=== PATIENT | male | born 1950 | race Caucasian/White ===

== ENCOUNTER 2019-05-18 17:05 | Observation (INO) | payer MEDICARE, OTHER, SELFPAY ==
[2019-05-18] VITALS (8 sets, daily range): BP systolic 129–167; BP diastolic 82–110; PULSE 62–83; RESP 15–18; TEMP 36.6–36.7; O2SAT 96–100; BMI 24.9
--- NOTE | 2019-05-18 17:09 | EKG12_ITS ---
Test Reason : CP Blood Pressure : / mmHG Vent. Rate : 085 BPM Atrial Rate : 085 BPM P-R Int : 156 ms QRS Dur : 086 ms QT Int : 368 ms P-R-T Axes : 063 080 069 degrees QTc Int : 437 ms Sinus rhythm with occasional Premature ventricular complexes Possible Left atrial enlargement Borderline ECG No previous ECGs available Confirmed by BASSEM MESSINA, REYNA ([id number]), commercial production editor RAJIV POWER ([id number]) on 05/23/2019 11:36:55 AM Referred By: Mian Zaragoza Confirmed By:REYNA LUEVANO MD
--- NOTE | 2019-05-18 17:10 | ED.DCSUM_ITS ---
History of Present Illness Chief Complaint: Chest Pain Detail of Chief Complaint: That has been intermittent x1 month Informant: Patient, Significant Other Onset: Weeks Context: Onset with activity, Sudden Onset Timing: Intermittent Quality: Pain Location: From right nipple to left subclavian region Current Severity: Presently patient has no pain Maximum Severity: Moderate Worsened by: Majority of the time exertion Relieved by: Nothing specific Associated Symptoms: None Narrative: Patient is a 68-year-old male history of hypertension, hypercholesterolemia status post three-vessel bypass surgery 3 years ago. He states he is never had a heart attack. His bypass surgery was done at the [facility]. Over the past month he has had chest discomfort described this pain that is precipitated mainly by exertion. There have been episodes where it occurs at rest. Today he felt flushed and reason he presents. There is no radiation or associated symptoms. He does have history of GERD. Denies black or maroon stool. There is no history of PE or DVT. He has no other complaints. Prior similar symptoms: No Recent Illness/Hospitalization: No - Past Medical History (1) History of hypertension Status: Acute (2) History of hypercholesterolemia Status: Acute (3) History of coronary artery disease Status: Acute Past Medical History - Allergies and Home Meds Allergies/Adverse Reactions: Allergies No Known Allergies Allergy (Verified 05/18/19 17:05) Prior records reviewed: No Surgical History: coronary bypass surgery Lives: Spouse/ Significant Other Alcohol: None Drugs: None Review of Systems General: Denies: Chills, Fever, Sweats Eyes: Denies: Visual changes - bilaterally, Diplopia ENT: Denies: Rhinorrhea, Sore throat Cardiovascular: Reports: Chest pain. Denies: Palpitations, Heart racing Respiratory: Denies: Dyspnea, Cough, Dyspnea on exertion, Orthopnea, Paroxysmal nocturnal dyspnea Gastrointestinal: Denies: Abdominal pain, Nausea, Vomiting, Diarrhea, Melena, Hematochezia Genitourinary: Denies: Dysuria, Hematuria, Frequency Musculoskeletal: Denies: Myalgias, Arthralgias, Neck pain, Back pain, Swelling, Extremity Pain, -, - Skin: Denies: Rash, Wounds Neurological: Denies: Headache, Weakness, Numbness Physical Exam Vital Signs/Narrative: Vital Signs Temp Pulse Resp BP Pulse Ox 05/18/19 17:08 98 F 83 15 167/110 H 98 Inital Vital Signs reviewed: Yes General: Well nourished, Well developed, No Acute Distress Head: Normocephalic, Atraumatic Eyes: Perrl, EOMI ENT: Moist mucous membranes, No rhinorrhea Neck: Supple, Nontender Cardiovascular: Regular rate, Regular rhythm, No murmurs, Normal S1, Normal S2 Respiratory: No distress, CTA bilaterally, Chest nontender Abdomen: Soft, Nontender, Nondistended, Normal bowel sounds Back: Nontender, Normal Inspection Extremities: Nontender, No edema Skin: Normal color, No rash Neurological: Alert, Oriented x3, Cranial nerves II-XII grossly intact, Normal Strength, Normal Sensation Psychological: Normal affect, Normal Mood Diagnostic/Tx/Re-eval Impressions Chest X-Ray 05/18/19 17:16 IMPRESSION: Nonacute portable x-ray examination of the chest. Electronically Signed: Boris Alonzo MD (Brooks) at 17:32 EST , Service support , 05/18/19 17:16 Chest 1 View (Portable) [RAD] Stat Laboratory Results 05/18/19 05/18/19 17:25 17:25 WBC 6.8 RBC 4.52 L Hgb 14.3 Hct 40.4 MCV 89.4 MCH 31.6 MCHC 35.4 RDW Std Deviation 38.9 RDW Coeff of Rufina 12.0 Plt Count 121 L MPV 8.0 Immature Gran % (Auto) 0.300 Neut % (Auto) 63.6 Lymph % (Auto) 24.0 [place] % (Auto) 9.6 Eos % (Auto) 2.2 Baso % (Auto) 0.3 Absolute Neuts (auto) 4.3 Absolute Lymphs (auto) 1.62 Nucleated RBC % 0 Sodium 138 Potassium 3.7 Chloride 105 Carbon Dioxide 27.0 Anion Gap 6 BUN 26 H Creatinine 1.35 H Estim Creat Clear Calc 43.85 Est GFR (MDRD) Af Amer 68 Est GFR (MDRD) Non-Af 56 L BUN/Creatinine Ratio 19.3 Glucose 85 Calcium 9.4 Troponin I < 0.015 Troponin is normal. Creatinine is elevated 1.35 with a GFR 56. CBC and H&H are normal. - Medical Decision Making Patient with 3 risk factors for coronary disease. He states prior to his three- vessel bypass surgery he had chest pain that came on predominantly with exertion. Cardiac work-up was initiated. Differential diagnosis is cardiac exertional angina versus GERD versus other cause. he has a heart score of 4. Likelihood of significant event in the next 3 days is 20.3%. Patient was made aware of this. Patient is willing to stay for further testing. He was informed of his troponin stay normal he in all likelihood to have a stress test if positive the hospitalist and math interventionist will speak with him. ED Disposition - Plan for ED Patient: Disposition: Acute Care Hospital [facility] Diagnosis: Chest pain on exertion, History of coronary artery disease, History of hypercholesterolemia, History of hypertension
--- NOTE | 2019-05-18 17:16 | RAD_ITS ---
STUDY: X-RAY CHEST REASON FOR EXAM: Male, 68 years old. Intermittent chest pain for one month TECHNIQUE: Single AP portable view of the chest. COMPARISON: None. FINDINGS: The lungs are clear and expanded. There is no demonstrated pleural abnormality. Normal size heart. Sternal wires and mediastinal surgical clips compatible with prior CABG. Normal visualized pulmonary arteries. There is atherosclerotic tortuosity of the aortic arch and descending thoracic aorta. No acute bony process. There is no demonstrated abnormality of the visualized soft tissue structures of the upper abdomen. RAD/Chest 1 View (Portable) IMPRESSION: Nonacute portable x-ray examination of the chest. Electronically Signed: Boris Alonzo MD (Brooks) at 17:32 EST , Service support ,
[2019-05-18 17:38] LABS: Absolute Lymphocyte Count 1.62 X10^3/uL (0.83-4.51); Absolute Neutrophil Count 4.3 X10^3/uL (2.0-7.7); Basophil# 0.02 X10^3/uL; Basophil% 0.3 % (0-1); Eosinophil# 0.15 X10^3/uL; Eosinophils% 2.2 % (0-5); Hematocrit 40.4 % (40-54); Hemoglobin 14.3 g/dL (13.0-16.5); Lymphocyte # 1.62 X10^3/ul (4.0); Mean Corp Hgb Conc 35.4 g/dL (32-36); Mean Corpuscular Hgb 31.6 pg (27.0-32.0); Mean Corpuscular Volume 89.4 fL (80-94); Monocyte# 0.65 X10^3/uL; Monocyte% 9.6 % (0-10); NRBC Flagged by Analyzer 0 % (0-5); Neutrophil % 63.6 % (47-70); Platelet Count 121 K/mm3 (150-450); RBC Distribution Width SD 38.9 fl (35.1-43.9); Red Blood Count 4.52 M/mm3 (4.6-6.2); White Blood Count 6.8 K/mm3 (4.4-11.0)
[2019-05-18 17:59] LABS: Anion Gap 6 (5-15); BUN 26 mg/dL (7-18); BUN/Creat Ratio 19.3 RATIO (10-20); Calcium,Total 9.4 mg/dL (8.5-10.1); Chloride 105 mmol/L (98-107); Creatinine, Serum 1.35 mg/dL (0.70-1.30); EST Glomerular Filtration Rate 56 mL/min (>60); Est Glom Filt Rate - Afr Amer 68 mL/min (>60); Estimated Creatinine Clearance 43.85 ml/min; Glucose 85 mg/dL (74-106); Potassium 3.7 mmol/L (3.5-5.1); Sodium Level 138 mmol/L (136-145)
--- NOTE | 2019-05-18 21:08 | EKG12_ITS ---
Test Reason : REPEAT ST ELEV Blood Pressure : / mmHG Vent. Rate : 065 BPM Atrial Rate : 065 BPM P-R Int : 148 ms QRS Dur : 082 ms QT Int : 404 ms P-R-T Axes : 060 076 086 degrees QTc Int : 420 ms Normal sinus rhythm Confirmed by BASSEM MESSINA, REYNA ([id number]), material expeditor RAJIV POWER ([id number]) on 05/23/2019 11:37:19 AM Referred By: Mian Zaragoza Confirmed By:REYNA LUEVANO MD
--- NOTE | 2019-05-18 21:58 | NURSING ---
Dr. Zaragoza aware of pt. EKG reading acute FL/STEMI. He is contacting Dr. Jimenez. Charge nurse Monique cortexting [address] Zaragoza request. This nurse spoke with Barbara Aceves regarding pt. asymptomatic and troponins negative. Dr. Jimenez plans to contact Dr. Tay for further consult. No new orders at this time.
--- NOTE | 2019-05-18 22:19 | EKG12_ITS ---
Test Reason : REPEAT ST ELEV Blood Pressure : / mmHG Vent. Rate : 072 BPM Atrial Rate : 072 BPM P-R Int : 154 ms QRS Dur : 084 ms QT Int : 394 ms P-R-T Axes : 062 076 081 degrees QTc Int : 431 ms Normal sinus rhythm Normal ECG When compared with ECG of 18-MAY-2019 21:00, MANUAL COMPARISON REQUIRED, DATA IS UNCONFIRMED Confirmed by BASSEM MESSINA, REYNA ([id number]), scientific publications editor RAJIV POWER ([id number]) on 05/23/2019 11:38:05 AM Referred By: Mian Zaragoza Confirmed By:REYNA LUEVANO MD
--- NOTE | 2019-05-18 22:25 | NURSING ---
Dr. Jimenez here to see pt. and . Orders obtained.
[2019-05-18] MEDS: 0.9% Normal Saline 1,000 ML 100 ML IV (22:28)
--- NOTE | 2019-05-18 22:29 | CON.PCM_ITS ---
Reason for Consult Date of Consultation: 05/18/19 History of Present Illness: The patient is a 68 year old M with a previous history of known coronary artery disease status post three-vessel coronary artery bypass surgery at the [facility] 3 years ago. He does have a history of hypertension. He says that he has been doing a lot of heavy manual work and this afternoon he had an episode of sharp chest discomfort. There was no radiation it was not necessarily related to exertion. Due to concerns he presented to the emergency room. An EKG which was performed the at that time when he presented at 1705 demonstrated sinus rhythm with a rate of 85 bpm possible left atrial enlargement and premature ventricular complexes. Initial cardiac enzymes were noted to be normal. He was admitted to the telemetry care unit. Subsequent routine EKG performed at 1900 hrs. demonstrated normal sinus rhythm with a rate of 65 bpm. There was approximately 0.[address] elevation noted in leads II, III and aVF with T wave inversion in aVL. Repeat EKG also performed at 2125 demonstrated similar findings. The computer read it as an acute ST elevation myocardial infarction. The EKGs were transmitted to co at 2 hrs. with a subsequent call. Patient was noted to be pain-free. On further discussion with the patient he is completely pain-free and says that this discomfort that he had on presentation was clearly different from what he had presented with when he had his initial angina prior to his bypass surgery. I asked for a repeat EKG stat at 2231 and it demonstrates normal sinus rhythm with a rate of 72 bpm and no acute changes. Of note was that the 2 intervening EKGs with performed with the patient in the semi-recumbent position. [] Past Medical History Allergies/Adverse Reactions: Allergies No Known Allergies Allergy (Verified 05/18/19 17:05) Home Medications: Ambulatory Orders Medication Instructions Recorded Ascorbic Acid [Vitamin C] 1,000 mg PO DAILY MDD supplement 05/18/19 Atorvastatin Calcium 40 mg PO QHS 05/18/19 Metoprolol Tartrate [Lopressor 12.5 mg PO BID 05/18/19 (beta rea)] Multivitamin with Minerals 1 tab PO DAILY 05/18/19 [Multiple Vitamin] Niacinamide [Niacin] 500 mg PO DAILY 05/18/19 [place]-3 Fatty Acids/Fish Oil [Fish 1 cap PO DAILY 05/18/19 Oil 1,000 mg Capsule] Omeprazole Magnesium [Prilosec Otc] 20 mg PO DAILY 05/18/19 Surgical History: coronary bypass surgery Lives: Spouse/ Significant Other Smoking Status: Never smoker Tobacco Use: Non-smoker Alcohol: None Drugs: None Review of Systems - Review of Systems General: Denies: Fever, Night Sweats, Fatigue HEENT: Denies: Vision Change Cardiovascular: Denies: Chest Discomfort, Shortness of Breath, Orthopnea, PND, Peripheral Edema, Palpitations, Lightheadedness, Dizziness, Near Syncope, Syncope Respiratory: Denies: Cough, Sputum Production, Hemoptysis Gastrointestinal: Denies: Hematemesis, Hematochezia, Melena Genitourinary: Denies: Dysuria, Hematuria Skin: Denies: Rash Neurological: Denies: Dizziness Psychiatric: Denies: Anxiety Endocrine: Denies: Heat Intolerance Hematologic/ Lymphatic: Denies: Lymph Node Enlargement Subjectve: Patient seen and evaluated appears to be doing well completely pain-free Objective: Vital Signs Temp Pulse Resp BP Pulse Ox 98.0 F 80 16 158/86 H 96 05/18/19 21:10 05/18/19 21:10 05/18/19 21:10 05/18/19 21:10 05/18/19 21:10 Oxygen Flow Rate (L/min) 1 Oxygen Delivery Method Room Air Weight: 145 lb 1.027 oz Body Mass Index (BMI) 24.9 General: Awake, Alert, Oriented x 3 HEENT: PERRL, EOMI, Sclera Non Icteric Neck: Supple, Good ROM, No Lymph Node Enlargement Lungs: Clear to auscultation Cardiovascular: Regular Rhythm, Normal S1, Normal S2, No Murmurs, No Rubs, No Gallops Vascular: No Carotid Bruits, Normal Femoral Pulses, Normal Radial Pulses, Normal Dorsalis Pedal Pulse, Normal Posterior Tibial Pulses Abdomen: Bowel Sounds Present, Soft, Non Tender, No HSM, No Organomegaly Extremities: No Cyanosis, No Clubbing, No edema Musculoskeletal: No Erythema Skin: No Rashes Lymphatic: No Lymph Node Enlargement Neurological: No Focal Motor or Sensory Deficit Psych/Mental Status: Appropriate 05/18/19 17:25: WBC 6.8, RBC 4.52 L, Hgb 14.3, Hct 40.4, MCV 89.4, MCH 31.6, MCHC 35.4, Plt Count 121 L, MPV 8.0, Immature Gran % (Auto) 0.300, Neut % (Auto) 63.6, Lymph % (Auto) 24.0, [place] % (Auto) 9.6, Eos % (Auto) 2.2, Baso % (Auto) 0.3, Absolute Neuts (auto) 4.3, Nucleated RBC % 0 05/18/19 17:25: Sodium 138, Potassium 3.7, Chloride 105, Carbon Dioxide 27.0, Anion Gap 6, BUN 26 H, Creatinine 1.35 H, Est GFR (MDRD) Af Amer 68, Est GFR (MDRD) Non-Af 56 L, BUN/Creatinine Ratio 19.3, Glucose 85, Calcium 9.4, Troponin I < 0.015 05/18/19 20:50: Troponin I < 0.015 Rhythm: EKG: EKG is as noted above ECHO: Stress Test: Cardiac Cath: PCI: CT Surgery: Holter monitor: EPS: PPM: CXR: Chest CT Scan: Assessment/Plan 1. Chest pain * Patient presents with chest pain with some atypical features. His initial EKG in the ER appears to be fairly normal. His 2 intervening EKGs appear to have been performed with him between 30 and 45 degrees. He remained completely pain-free. His follow-up EKG performed here in my presence done flat by the same critical systems technician who had performed both demonstrates normal sinus rhythm with no acute changes. * Based on the above I do not think the present at this time is having an acute inferior myocardial infarction * Will treat as unstable angina * Aspirin * Brilinta 180 mg * Continue beta-rea * Will schedule for cardiac catheterization in a.m. The above has been discussed with the patient and his , risk benefits alternatives he understands and agrees to proceed. * 2. Hypertension * Good control continue current medical therapy * 3. Hyperlipidemia * Continue current aggressive medical therapy. * * Thank you for allowing me to participate in the care of your patient. Please don't hesitate to call if any issues arise
[2019-05-18] MEDS: 0.9% Saline Lock 10 ML Syringe IV (22:35)
[2019-05-18] MEDS: TICAGRELOR 90 MG TABLET 180 MG PO (22:40)
[2019-05-18] MEDS: Atorvastatin Calcium 40 MG Tablet PO (22:41)
[2019-05-18] MEDS: Aspirin 325 MG Tablet PO (22:41)
[2019-05-18] MEDS: Metoprolol Tartrate 25 MG Tablet 12.5 MG PO (22:42)
--- NOTE | 2019-05-18 22:42 | EKG12_ITS ---
Test Reason : CP ADMISSION Blood Pressure : / mmHG Vent. Rate : 065 BPM Atrial Rate : 065 BPM P-R Int : 148 ms QRS Dur : 082 ms QT Int : 404 ms P-R-T Axes : 062 077 087 degrees QTc Int : 420 ms Normal sinus rhythm Cannot exclude previous inferior OK Confirmed by BASSEM MESSINA, REYNA ([id number]), metropolitan editor RAJIV POWER ([id number]) on 05/23/2019 11:37:55 AM Referred By: Mian Zaragoza Confirmed By:REYNA LUEVANO MD
--- NOTE | 2019-05-18 23:54 | HP.PCM_ITS ---
Problem List (1) Chest pain Status: Acute (2) History of coronary artery disease Status: Chronic (3) History of hypercholesterolemia Status: Chronic (4) History of hypertension Status: Chronic History of Present Illness Date of Admission: 05/18/19 Chief Complaint: chest pain The patient is a 68 year old M with a significant history of CAD s/p CABG about 3 years ago, HTN who presented with chest pain. In the last one to two months he has had chest pain that he associates with physical activity of remodelling his house. His chest pain used to go away with rest. However, on the day of presentation he was driving his car and he began to have chest pain that was not going away. He describes his pain as sharp. Also he felt warm and his face looks flushed. Further he has left shoulder pain that he associates with chronic shoulder pain. He denies any nausea, vomiting, sweatiness, shortness of breath or headaches. EKG at the emergency department showed sinus rhythm. However at the [facility] EKG x2 while in semi-recumbent position showed st elevation. Repeat EKG with patient lying flat was normal. Past Medical History Past Medical History (Chronic Problems): Chronic Problems History of hypertension (Chronic) History of hypercholesterolemia (Chronic) History of coronary artery disease (Chronic) Allergies No Known Allergies Allergy (Verified 05/18/19 17:05) Home Medications: Ambulatory Orders Medication Instructions Recorded Ascorbic Acid [Vitamin C] 1,000 mg PO DAILY MDD supplement 05/18/19 Atorvastatin Calcium 40 mg PO QHS 05/18/19 Metoprolol Tartrate [Lopressor 12.5 mg PO BID 05/18/19 (beta mino)] Multivitamin with Minerals 1 tab PO DAILY 05/18/19 [Multiple Vitamin] Niacinamide [Niacin] 500 mg PO DAILY 05/18/19 [place]-3 Fatty Acids/Fish Oil [Fish 1 cap PO DAILY 05/18/19 Oil 1,000 mg Capsule] Omeprazole Magnesium [Prilosec Otc] 20 mg PO DAILY 05/18/19 Surgical History: coronary bypass surgery Lives: Spouse/ Significant Other Smoking Status: Never smoker Tobacco Use: Non-smoker Alcohol: None Drugs: None - *Family History Maternal History Items: Heart Disease Paternal History Items: Heart Disease Review of Systems Constitutional: Denies: Chills, Fever, Weight Change HEENT: Denies: Head Aches, Sinus Congestion, Sinus Drainage Cardiovascular: Reports: Chest Pain. Denies: Palpitations Respiratory: Denies: Cough, Shortness of breath at rest, Sputum production Gastrointestinal: Denies: Abdominal Pain, Nausea, Vomiting Genitourinary: Denies: Dysuria Musculoskeletal: Reports: Shoulder Pain. Denies: Joint Pain, Joint Tenderness Skin: Denies: Rash, Wounds Neurological: Denies: Numbness, Tingling, Focal weakness Psychiatric: Denies: Anxiety, Depression, Homicidal Ideations, Suicidal Ideations Hematologic/ Lymphatic: Denies: Easy Bruising, Easy Bleeding VTE Information - Inpt Only VTE Present on Admission: No VTE Mechan Device Prophylaxis: SCD's VTE Pharm Prophylaxis ordered?: No Patient Problems: Active and Suspected Problems Chest pain (Acute) - Physical Exam Vitals/I&O's: Vital Signs Temp Pulse Resp BP Pulse Ox 98.0 F 80 16 158/86 H 96 05/18/19 21:10 05/18/19 22:42 05/18/19 21:10 05/18/19 22:42 05/18/19 21:10 Oxygen Flow Rate (L/min) 1 Oxygen Delivery Method Room Air Weight: 65.8 kg Body Mass Index (BMI) 24.9 General: Alert, Oriented x3, Cooperative HEENT: Atraumatic, PERRLA, EOMI, Normocephalic Neck: Supple, No JVD, Negative Carotid Bruits Lungs: Clear to auscultation, Normal air movement Cardiovascular: Regular rate, No murmurs Abdomen: Bowel Sounds Present, Soft, Non Tender Extremities: No edema, Capillary Refill Less than 3 Seconds Skin: No rashes, No breakdown Musculoskeletal: No Tenderness to Palpation of Joints or Extremities Neurological: Cranial nerves II-XII grossly intact Psych/Mental Status: Normal Affect, Appropriate Laboratory Results 05/18/19 17:25: WBC 6.8, RBC 4.52 L, Hgb 14.3, Hct 40.4, MCV 89.4, MCH 31.6, MCHC 35.4, RDW Std Deviation 38.9, RDW Coeff of Rufina 12.0, Plt Count 121 L, MPV 8.0, Immature Gran % (Auto) 0.300, Neut % (Auto) 63.6, Lymph % (Auto) 24.0, [place] % (Auto) 9.6, Eos % (Auto) 2.2, Baso % (Auto) 0.3, Absolute Neuts (auto) 4.3, Absolute Lymphs (auto) 1.62, Nucleated RBC % 0 05/18/19 17:25: Sodium 138, Potassium 3.7, Chloride 105, Carbon Dioxide 27.0, Anion Gap 6, BUN 26 H, Creatinine 1.35 H, Estim Creat Clear Calc 43.85, Est GFR (MDRD) Af Amer 68, Est GFR (MDRD) Non-Af 56 L, BUN/Creatinine Ratio 19.3, Glucose 85, Calcium 9.4, Troponin I < 0.015 05/18/19 20:50: Troponin I < 0.015 05/18/19 22:34: Troponin I < 0.015 Current Medications Aspirin (Aspirin, Baby) 81 mg PO DAILY@0800 [facility] Atorvastatin Calcium (Lipitor) 40 mg PO QHS [facility]1983 Last Admin: 05/18/19 22:41 Dose: 40 mg Documented by: Glucagon () 1 mg IM .X1 PRN PRN Reason: Hypoglycemia Sodium Chloride () 1,000 mls @ 100 mls/hr IV .Q10H [facility]1983 Stop: 05/19/19 17:49 Last Admin: 05/18/19 22:28 Dose: 100 mls/hr Documented by: Sodium Chloride () 1,000 mls @ 0 mls/hr IV .Q0M [facility]1983 Dextrose (Dextrose 10%-Water) 250 mls @ 999 mls/hr IV .Q16M PRN; Protocol PRN Reason: HYPOGLYCEMIA Metoprolol Tartrate (Lopressor (Beta Mino)) 12.5 mg PO BID [facility]1983 Last Admin: 05/18/19 22:42 Dose: 12.5 mg Documented by: Nitroglycerin (Nitrostat) 0.4 mg SUBLINGUAL Q5M PRN PRN Reason: Angina pain Ondansetron HCl (Zofran) 4 mg IV Q8H PRN PRN PRN Reason: NAUSEA/VOMITING Pantoprazole Sodium (Protonix) 20 mg PO DAILY [facility] Sodium Chloride () 10 - 40 ml IV UD PRN PRN Reason: SALINE FLUSH Last Admin: 05/18/19 22:35 Dose: 10 ml Documented by: Assessment/Plan All Active Problems Chest pain (Acute) The patient is a 68 year old M with a significant history of CAD s/p CABG about 3 years ago, HTN who presented with chest pain and noted to have ST elevation in inferior leads while patient was in a semi-recumbent position; but with ST elevation resolution in supine position. Chest pain Place on a monitored bed at PCU CXR independently reviewed confirms no acute cardiopulmonary process. EKG independently reviewed confirms sinus rhythm initially at the emergency department. With ST elevation in the inferior leads x2 while patient was in se mi-recumbent position but resolved when patient was laid flat. Case was discussed with tire fabric inspector who came to evaluate the patient. cardiology ordered loading dose of Brilinta; and planning for cardiac cath in a.m. ASA 81 mg p.o. daily SL NTG 0.4 mg prn as needed for chest pain Metoprolol 12.5 mg p.o. twice daily continued We will check lipid panel. High intensity statin continued Cardiac enzymes so far are negative. Continue to trend cardiac enzymes. Stat EKG as needed for chest pain Hypertension On presentation his blood pressure was not within goal. Metoprolol continued. Trend blood pressure and adjust blood pressure medications. GERD Protonix continued DVT prophylaxis SCD in the setting of cardiac cath in a.m. Code Visit OBSV E&M: [id number] Initial observation care L3
[2019-05-19] VITALS (18 sets, daily range): BP systolic 76–146; BP diastolic 53–93; PULSE 52–84; RESP 16; TEMP 36.4–36.7; O2SAT 94–100
--- NOTE | 2019-05-19 06:08 | EKG12_ITS ---
Test Reason : AM EKG Blood Pressure : / mmHG Vent. Rate : 069 BPM Atrial Rate : 069 BPM P-R Int : 156 ms QRS Dur : 082 ms QT Int : 392 ms P-R-T Axes : 062 078 083 degrees QTc Int : 420 ms Normal sinus rhythm Confirmed by BASSEM MESSINA, REYNA ([id number]), editor managing newspaper RAJIV POWER ([id number]) on 05/23/2019 11:38:22 AM Referred By: Mian Zaragoza Confirmed By:REYNA LUEVANO MD
[2019-05-19 06:29] LABS: Cholesterol 150 mg/dL (200); High Density Lipoprotein 45 mg/dL; Triglycerides 94 mg/dL; Very Low Density Lipoprotein 19 mg/dL (5-40)
[2019-05-19] MEDS: Metoprolol Tartrate 25 MG Tablet 12.5 MG PO (07:01)
[2019-05-19] MEDS: Aspirin 81 MG TAB.CHEW PO (07:02)
[2019-05-19] MEDS: 0.9% Normal Saline 1,000 ML 15 ML IV (07:04)
--- NOTE | 2019-05-19 07:10 | NURSING ---
Report called to Shay KWONG in veterinarian laboratory animal care at this time
--- NOTE | 2019-05-19 08:30 | ECHOCS_ITS ---
Reason For Study: S/P CABG Procedure This was a 2D Doppler, Color Flow transthoracic echocardiogram. The study was technically difficult. Contrast injection was performed. Pt s/p LHC- not in LLD position for exam. Exam performed portable in patient room. Left Ventricle Normal LV size. Left ventricular systolic function is normal. The estimated ejection fraction is 65 %. Stage 1 diastolic dysfunction. No regional wall motion abnormalities noted. Right Ventricle Normal RV size. Normal systolic function. Atria Normal left atrium. Normal right atrium. Mitral Valve Normal mitral valve. Tricuspid Valve The tricuspid valve is not well visualized. Aortic Valve The aortic valve is not well visualized. Pulmonic Valve Normal pulmonic valve. Great Vessels Mildly dilated aortic root. The pulmonary artery is normal size. Normal inferior vena cava. Pericardium/Pleural No pericardial effusion. Medication Diluted definity 5.0ml given slow IV push to enhance endocardial definition. MMode/2D Measurements & Calculations LVIDd: 3.8 cm IVSd: 0.99 cm Ao root diam: 3.9 cm LVIDs: 2.4 cm LVPWd: 1.1 cm RVDd: 3.4 cm FS: 37.4 % LAV(MOD-bp): 22.0 ml LA A4 area: 10.6 cm2 LA dimension(2D): 3.7 cm LAV(MOD-bp) Indexed: 12.9 ml/m2 LAV(MOD-sp2): 21.6 ml LAV(MOD-sp4): 21.8 ml RA A4 area: 11.4 cm2 Time Measurements MV dec time: 0.29 sec Doppler Measurements & Calculations MV E max colt: 43.4 cm/sec Lat Peak E' Colt: 7.2 cm/sec Med Peak E' Colt: 4.9 cm/sec MV A max colt: 53.5 cm/sec E/E' lat: 6.1 E/E' med: 8.8 MV E/A: 0.81 Ao V2 max: 93.4 cm/sec LV V1 max: 80.1 cm/sec TR max colt: 181.2 cm/sec Ao max P.5 mmHg LV V1 max P.6 mmHg TR max P.1 mmHg Interpretation Summary Normal LV size. Left ventricular systolic function is normal. The estimated ejection fraction is 65 %. Stage 1 diastolic dysfunction. Mildly dilated aortic root. Contrast injection was performed. Ordering Physician: Randy Jimenez Referring Physician: Mian Zaragoza Performed By: Lilliana Fischer, TYLER, RVT
--- NOTE | 2019-05-19 08:31 | PN.CARD_ITS ---
Subjectve: Patient seen and evaluated. Underwent cardiac catheterization this morning Objective: Vital Signs Temp Pulse Resp BP Pulse Ox 98.0 F 75 16 146/93 H 98 05/19/19 07:05 05/19/19 07:05 05/19/19 07:05 05/19/19 07:05 05/19/19 07:05 Oxygen Flow Rate (L/min) 1 Oxygen Delivery Method Room Air Weight: 145 lb 1.027 oz Body Mass Index (BMI) 24.9 Intake and Output for Last 24 Hours 05/17/19 05/18/19 05/19/19 23:59 23:59 23:59 Intake Total 200 / 200 906.67 / 906.67 Balance 200 / 200 906.67 / 906.67 General: Awake, Alert, Oriented x 3 HEENT: PERRL, EOMI, Sclera Non Icteric Neck: Supple, Good ROM, No Lymph Node Enlargement Lungs: Clear to auscultation Cardiovascular: Regular Rhythm, Normal S1, Normal S2, No Murmurs, No Rubs, No Gallops Vascular: No Carotid Bruits, Normal Femoral Pulses, Normal Radial Pulses, Normal Dorsalis Pedal Pulse, Normal Posterior Tibial Pulses Abdomen: Bowel Sounds Present, Soft, Non Tender, No HSM, No Organomegaly Extremities: No Cyanosis, No Clubbing, No edema Musculoskeletal: No Erythema Skin: No Rashes Lymphatic: No Lymph Node Enlargement Neurological: No Focal Motor or Sensory Deficit Psych/Mental Status: Appropriate 05/18/19 17:25: WBC 6.8, RBC 4.52 L, Hgb 14.3, Hct 40.4, MCV 89.4, MCH 31.6, MCHC 35.4, Plt Count 121 L, MPV 8.0, Immature Gran % (Auto) 0.300, Neut % (Auto) 63.6, Lymph % (Auto) 24.0, [place] % (Auto) 9.6, Eos % (Auto) 2.2, Baso % (Auto) 0.3, Absolute Neuts (auto) 4.3, Nucleated RBC % 0 05/18/19 17:25: Sodium 138, Potassium 3.7, Chloride 105, Carbon Dioxide 27.0, Anion Gap 6, BUN 26 H, Creatinine 1.35 H, Est GFR (MDRD) Af Amer 68, Est GFR (MDRD) Non-Af 56 L, BUN/Creatinine Ratio 19.3, Glucose 85, Calcium 9.4, Troponin I < 0.015 05/18/19 20:50: Troponin I < 0.015 05/18/19 22:34: Troponin I < 0.015 05/19/19 01:34: Troponin I < 0.015 05/19/19 05:30: Triglycerides 94, Cholesterol 150, LDL Cholesterol 86, VLDL C holesterol 19, HDL Cholesterol 45 Rhythm: EKG: ECHO: Stress Test: Cardiac Cath: PCI: CT Surgery: Holter monitor: EPS: PPM: CXR: Chest CT Scan: Medical Necessity - Tobacco Use Smoking Status: Never smoker Tobacco Use: Non-smoker Assessment/Plan 1. Chest pain * Patient presents with chest pain with some atypical features. * His cardiac catheterization demonstrated normal left main coronary artery, * Left anterior descending artery with moderate proximal disease and total occlusion * Dominant left circumflex artery with 40% proximal stenosis * Tiny ramus intermedius with high-grade ostial stenosis * Nondominant right coronary artery which is diffusely diseased * HERNANDEZ to the LAD which is patent * Aortogram demonstrating no additional graft * Based on the above angiographic findings aggressive medical therapy would be undertaken. * 2. Hypertension * Good control continue current medical therapy * 3. Hyperlipidemia * Continue current aggressive medical therapy. * * * Patient can be discharged for outpatient follow-up. * Thank you for allowing me to participate in the care of your patient. Please don't hesitate to call if any issues arise
--- NOTE | 2019-05-19 08:42 | CL.D_ITS ---
Patient Name: SARA STEINER Study Date: 05/19/2019 Performing: Randy Jimenez MD Ht: 64.17 inches 163 cm : 1950 Wt: 145.51 lbs 66 kg Age: 68 Gender: male BSA: 1.71 PROCEDURE(S) PERFORMED CV48-ACG/COR/LV/CABG DC11-AO ROOT ANGIO WITH HEART CATH CLINICAL PROFILE AND INDICATIONS Indications: New Onset Angina <= 2 months Heart Failure: None Stress/Imaging Stress/Image Study Performed: No CAD Presentations: Unstable angina. CONCLUSIONS Patent left internal mammary artery to the left anterior descending artery, dominant left circumflex artery with 40% proximal stenosis, nondominant small right coronary artery with diffuse disease. Lef t anterior descending artery with moderate proximal disease. Small tiny ramus intermedius with ostia l stenosis. RECOMMENDATIONS Medical therapy DESCRIPTION OF PROCEDURE The patient arrived to the procedure lab. The risks and benefits of the procedure as well as a full d escription of our services here and current unavailability of surgical backup were fully explained to the patient and/or their significant other prior to the catheterization. The Timeout was completed, verifying the correct patient and procedure. The patient's procedural site was prepped and draped in the usual fashion. Local anesthetic was given subcutaneously to right groin region with Lidocaine 2%. Using a modified Seldinger technique, arterial access was obtained via the right femoral artery, a 5 Fr sheath was inserted. Left Coronary Artery selective angiography was performed in multiple views u sing a 5 Fr. JL4 catheter. Right Coronary Artery selective angiography was then performed in multiple views using a 5 Fr. 3DRC (Isma) catheter. Left internal mammary artery graft to the LAD selectiv e angiography was performed in multiple views using a 5 Fr. 3DRC (Isma) catheter. Ascending (root) aorta selective angiography was then performed in single view. Ascending (root) aort a selective angiography was then performed in single view.Contrast was injected through the sheath an d the Right Iliac and Femoral artery were assessed for possible closure device.The arterial sheath wa s pulled and manual compression applied until hemostasis is achieved. CORONARY ANGIOGRAPHY DOMINANCE: Left Dominant LEFT MAIN: Angiographically normal LEFT ANTERIOR DESCENDING ARTERY: PROX LAD: 70 % Stenosis CIRCUMFLEX ARTERY: PROX CIRC: 40 % Stenosis RAMUS: 75 % Stenosis RIGHT CORONARY ARTERY: PROX RCA: 70 % Stenosis MID RCA: 70 % Stenosis GRAFTS: HERNANDEZ graft to the Mid LAD is patent AORTIC ROOT: Angiographically normal COMPLICATIONS No Complications PROCEDURE MEDICATIONS Versed 1 mg IV Versed 1 mg IV Fentanyl 50 mcg IV Oxygen: 2 L/min via nasal cannula Brilinta 90 mg PO 05/19/2019 07:28:19 Atropine 1mg/10ml 0.5 amp @ 05/19/2019 08:34:08 SUMMARY OF HEMODYNAMIC DATA Time AIR REST ECG 07:34:19 AO 158/97 (123) SA 07:54:23 AO 126/83 (101) 07:59:55 08:40:24 Signed By Randy Jimenez MD On 05/19/2019 08:41:15 Randy Jimenez MD
[2019-05-19] MEDS: 0.9% Saline Lock 10 ML Syringe IV ×2 (10:30→10:34)
[2019-05-19] MEDS: Ondansetron 4 MG/2 ML Vial IV (10:30)
--- NOTE | 2019-05-19 10:31 | DCINST_ITS ---
- Discharge Diagnoses Current Active Problems: Current Active and Chronic Problems History of hypertension (Chronic) History of hypercholesterolemia (Chronic) History of coronary artery disease (Chronic) Chest pain (Acute) You will use the following diet at home:: Cardiac Discharge Activity: Return to Normal Activity Call your doctor if you observe: Shortness of breath, Dizziness, Fainting spells, Chest pain Allergies/Adverse Reactions: Allergies No Known Allergies Allergy (Verified 05/18/19 17:05) Medications to take at Discharge Ascorbic Acid [Vitamin C] 1,000 mg PO DAILY MDD supplement 05/18/19 Atorvastatin Calcium 40 mg PO QHS 05/18/19 Metoprolol Tartrate [Lopressor (beta rea)] 12.5 mg PO BID 05/18/19 Multivitamin with Minerals [Multiple Vitamin] 1 tab PO DAILY 05/18/19 Niacinamide [Niacin] 500 mg PO DAILY 05/18/19 [place]-3 Fatty Acids/Fish Oil [Fish Oil 1,000 mg Capsule] 1 cap PO DAILY 05/18/19 Omeprazole Magnesium [Prilosec Otc] 20 mg PO DAILY 05/18/19 Aspirin [Aspirin, Baby] 81 mg PO DAILY@0800 tab.chew 05/19/19 Isosorbide Mononitrate [Imdur] 30 mg PO DAILY #60 tab 05/19/19 The following prescriptions were given: Isosorbide Mononitrate [Imdur] 30 mg PO DAILY #60 tab Transmission Status: Pending to [facility] Primary Care Physician: Tanisha Oshea MD [Primary Care Provider] - Please follow up with your Primary Care Physician in: 1 Week Test Results: Test results from this visit will be discussed in further detail at your follow- up appointment, if applicable. Please Follow Up With: Randy Jimenez MD When: 2 Weeks, may see HAND HEEL SEAT FITTER/PA Proposed Discharge Date: 05/19/19
--- NOTE | 2019-05-19 10:33 | PCM.DC.SUM ---
<Ciera Tabor - Last Filed: 05/19/19 10:50> Discharge Date and Diagnosis Date of Admission: 05/18/19 Date of Discharge: 05/19/19 - Primary Discharge Diagnosis Active and Suspected Problems 1. Chest pain, ACS ruled out 2. CAD 3. Hypertension 4. Hyperlipidemia 5. GERD - Secondary Discharge Diagnosis Chronic Problems History of hypertension (Chronic) History of hypercholesterolemia (Chronic) History of coronary artery disease (Chronic) Hospital Course and Treatment Imaging Results: Diagnostic Data Chest X-Ray 05/18/19 17:16 IMPRESSION: Nonacute portable x-ray examination of the chest. Electronically Signed: Boris Alonzo MD (Brooks) at 17:32 EST , Service support , Dr. Jimenez- Cardiology Operations: None Procedures: 2-D Echocardiogram, Cardiac catheterization Summary of Care Provided: The patient is a 68 year old M admitted 05/18/2019 due to chest pain. 1. Chest pain, ACS ruled out-troponin negative. EKG without ST-T changes. Cardiology consulted given history of CAD status post CABG. Patient underwent cardiac catheterization which demonstrated lay to LAD patent, tiny ramus intermedius with high-grade ostial stenosis, dominant left circumflex artery 40% proximal stenosis, left anterior descending artery with moderate proximal disease in total occlusion, normal left main coronary artery. Aggressive medical therapy recommended. Continue aspirin, statin. Added on nitrate. Follow-up with Dr. Jimenez, cardiology in 2 weeks. 2. CAD status post CABG-cardiac catheterization and medical management as noted above. 3. Hypertension-stable, continue metoprolol. Initiated on isosorbide. 4. Hyperlipidemia-continue statin. 5. GERD- continue PPI. Patient seen and examined prior to discharge. Physical assessment as noted below. Patient is stable for discharge with follow up recommendations as noted above. This patient was seen by NICK Castillo under the supervision of Dr. Conway. - Physical Exam Vitals/I&O's: Vital Signs Temp Pulse Resp BP Pulse Ox 98.1 F 72 16 118/78 97 05/19/19 10:00 05/19/19 10:00 05/19/19 10:00 05/19/19 10:00 05/19/19 10:00 Oxygen Flow Rate (L/min) 1 Oxygen Delivery Method Room Air Weight: 145 lb 1.027 oz Body Mass Index (BMI) 24.9 Intake and Output for Last 24 Hours 05/17/19 05/18/19 05/19/19 23:59 23:59 23:59 Intake Total 200 / 200 936.42 / 936.42 Balance 200 / 200 936.42 / 936.42 General: Alert, Oriented x3, Cooperative HEENT: Atraumatic, PERRLA, EOMI, Normocephalic Neck: Supple, No JVD, Negative Carotid Bruits Lungs: Clear to auscultation, Normal air movement Cardiovascular: Regular rate, Regular Rhythm, Normal S1, Normal S2, No murmurs Abdomen: Bowel Sounds Present, Soft, Non Tender, Non-Distended Extremities: No clubbing, No cyanosis, No edema, Capillary Refill Less than 3 Seconds Skin: No rashes, No breakdown Musculoskeletal: No Tenderness to Palpation of Joints or Extremities Neurological: Cranial nerves II-XII grossly intact, Neuro grossly intact Psych/Mental Status: Normal Affect, Appropriate Laboratory Results 05/18/19 17:25: WBC 6.8, RBC 4.52 L, Hgb 14.3, Hct 40.4, MCV 89.4, MCH 31.6, MCHC 35.4, RDW Std Deviation 38.9, RDW Coeff of Rufina 12.0, Plt Count 121 L, MPV 8.0, Immature Gran % (Auto) 0.300, Neut % (Auto) 63.6, Lymph % (Auto) 24.0, [place] % (Auto) 9.6, Eos % (Auto) 2.2, Baso % (Auto) 0.3, Absolute Neuts (auto) 4.3, Absolute Lymphs (auto) 1.62, Nucleated RBC % 0 05/18/19 17:25: Sodium 138, Potassium 3.7, Chloride 105, Carbon Dioxide 27.0, Anion Gap 6, BUN 26 H, Creatinine 1.35 H, Estim Creat Clear Calc 43.85, Est GFR (MDRD) Af Amer 68, Est GFR (MDRD) Non-Af 56 L, BUN/Creatinine Ratio 19.3, Glucose 85, Calcium 9.4, Troponin I < 0.015 05/18/19 20:50: Troponin I < 0.015 05/18/19 22:34: Troponin I < 0.015 05/19/19 01:34: Troponin I < 0.015 05/19/19 05:30: Triglycerides 94, Cholesterol 150, LDL Cholesterol 86, VLDL Cholesterol 19, HDL Cholesterol 45 Current Medications Aspirin (Aspirin, Baby) 81 mg PO DAILY@0800 [facility] Last Admin: 05/19/19 07:02 Dose: 81 mg Documented by: Atorvastatin Calcium (Lipitor) 40 mg PO QHS [facility] Last Admin: 05/18/19 22:41 Dose: 40 mg Documented by: Glucagon () 1 mg IM .X1 PRN PRN Reason: Hypoglycemia Heparin Sodium (Beef Lung) (Heparin 500 Unit/5 Ml (100/Ml)) 500 unit IV UD PRN PRN Reason: HEPARIN FLUSH Sodium Chloride () 1,000 mls @ 100 mls/hr IV .Q10H [facility] Stop: 05/19/19 17:49 Last Infusion: 05/19/19 09:03 Dose: 100 mls/hr Documented by: Sodium Chloride () 1,000 mls @ 0 mls/hr IV .Q0M [facility] Dextrose (Dextrose 10%-Water) 250 mls @ 999 mls/hr IV .Q16M PRN; Protocol PRN Reason: HYPOGLYCEMIA Isosorbide Mononitrate (Imdur) 30 mg PO DAILY [facility] Labetalol HCl (Trandate) 5 mg IV X1 PRN PRN Reason: SBP > 160 prior to sheath pull Metoprolol Tartrate (Lopressor (Beta Mino)) 12.5 mg PO BID [facility] Last Admin: 05/19/19 07:01 Dose: 12.5 mg Documented by: Nitroglycerin (Nitrostat) 0.4 mg SUBLINGUAL Q5M PRN PRN Reason: Angina pain Ondansetron HCl (Zofran) 4 mg IV Q8H PRN PRN PRN Reason: NAUSEA/VOMITING Last Admin: 05/19/19 10:30 Dose: 4 mg Documented by: Pantoprazole Sodium (Protonix) 20 mg PO DAILY [facility] Sodium Chloride () 10 - 40 ml IV UD PRN PRN Reason: SALINE FLUSH Last Admin: 05/19/19 10:30 Dose: 10 ml Documented by: Discharge Diet: Low fat/ Low Cholesterol Discharge Activity: Return to Normal Activity Call your doctor if you observe: Shortness of breath, Dizziness, Fainting spells, Chest pain Home Medications: Medications to take at Discharge Ascorbic Acid [Vitamin C] 1,000 mg PO DAILY MDD supplement 05/18/19 Atorvastatin Calcium 40 mg PO QHS 05/18/19 Metoprolol Tartrate [Lopressor (beta mino)] 12.5 mg PO BID 05/18/19 Multivitamin with Minerals [Multiple Vitamin] 1 tab PO DAILY 05/18/19 Niacinamide [Niacin] 500 mg PO DAILY 05/18/19 [place]-3 Fatty Acids/Fish Oil [Fish Oil 1,000 mg Capsule] 1 cap PO DAILY 05/18/19 Omeprazole Magnesium [Prilosec Otc] 20 mg PO DAILY 05/18/19 Aspirin [Aspirin, Baby] 81 mg PO DAILY@0800 tab.chew 05/19/19 Isosorbide Mononitrate [Imdur] 30 mg PO DAILY #60 tab 05/19/19 Following Prescrptions Were Given to Patient: Isosorbide Mononitrate [Imdur] 30 mg PO DAILY #60 tab Transmission Status: Received by [facility] Primary Care Physician: Tanisha Oshea MD [Primary Care Provider] - Please follow up with your Primary Care Physician in: 1 Week Please Follow Up With: Randy Jimenez MD When: 2 Weeks, may see AUTO BODY MAN/PA Disposition: Home Minutes spent on discharge:: 35 Patient Condition:: Stable Medical Necessity - Tobacco Use Smoking Status: Never smoker Tobacco Use: Non-smoker Meaningful Use Info Meaningful Use Diagnoses (Choose all that apply): None applicable <Tobias Conway - Last Filed: 05/19/19 12:11> Discharge Date and Diagnosis - Secondary Discharge Diagnosis Chronic Problems History of hypertension (Chronic) History of hypercholesterolemia (Chronic) History of coronary artery disease (Chronic) Hospital Course and Treatment Imaging Results: 05/19/19 08:30 Echo Complete W/ Contrast [ECHO] Routine Summary of Care Provided: This patient was seen in conjunction with NICK Castillo . I have independently interviewed and examined the patient and reviewed pertinent historical, laboratory, and other data. Please refer to NICK Castillo note for details of this patient's presentation, findings, and recommendations. I have reviewed NICK Castillo note and concur with documented findings. In brief, patient is a 68-year-old male admitted with chest pain. Patient was placed on a monitored bed. Given his significant past cardiac history consultation was placed to cardiology. Patient underwent left heart catheterization results are as above Hospital course: As documented above - Physical Exam Vitals/I&O's: Vital Signs Temp Pulse Resp BP Pulse Ox 97.6 F L 71 16 96/64 97 05/19/19 11:00 05/19/19 12:00 05/19/19 12:00 05/19/19 12:00 05/19/19 12:00 Oxygen Flow Rate (L/min) 1 Oxygen Delivery Method Room Air Weight: 65.8 kg Body Mass Index (BMI) 24.9 Intake and Output for Last 24 Hours 05/17/19 05/18/19 05/19/19 23:59 23:59 23:59 Intake Total 200 / 200 1513.09 / 1513.09 Balance 200 / 200 1513.09 / 1513.09 Laboratory Results 05/18/19 17:25: WBC 6.8, RBC 4.52 L, Hgb 14.3, Hct 40.4, MCV 89.4, MCH 31.6, MCHC 35.4, RDW Std Deviation 38.9, RDW Coeff of Rufina 12.0, Plt Count 121 L, MPV 8.0, Immature Gran % (Auto) 0.300, Neut % (Auto) 63.6, Lymph % (Auto) 24.0, [place] % (Auto) 9.6, Eos % (Auto) 2.2, Baso % (Auto) 0.3, Absolute Neuts (auto) 4.3, Absolute Lymphs (auto) 1.62, Nucleated RBC % 0 05/18/19 17:25: Sodium 138, Potassium 3.7, Chloride 105, Carbon Dioxide 27.0, Anion Gap 6, BUN 26 H, Creatinine 1.35 H, Estim Creat Clear Calc 43.85, Est GFR (MDRD) Af Amer 68, Est GFR (MDRD) Non-Af 56 L, BUN/Creatinine Ratio 19.3, Glucose 85, Calcium 9.4, Troponin I < 0.015 05/18/19 20:50: Troponin I < 0.015 05/18/19 22:34: Troponin I < 0.015 05/19/19 01:34: Troponin I < 0.015 05/19/19 05:30: Triglycerides 94, Cholesterol 150, LDL Cholesterol 86, VLDL Cholesterol 19, HDL Cholesterol 45 05/19/19 05:30: Sodium 144, Potassium 4.5, Chloride 113 H, Carbon Dioxide 26.0, Anion Gap 5, BUN 25 H, Creatinine 1.31 H, Estim Creat Clear Calc 45.19, Est GFR (MDRD) Af Amer 70, Est GFR (MDRD) Non-Af 58 L, BUN/Creatinine Ratio 19.1, Glucose 82, Calcium 9.1 Current Medications Aspirin (Aspirin, Baby) 81 mg PO DAILY@0800 [facility] Last Admin: 05/19/19 07:02 Dose: 81 mg Documented by: Atorvastatin Calcium (Lipitor) 40 mg PO QHS [facility] Last Admin: 05/18/19 22:41 Dose: 40 mg Documented by: Glucagon () 1 mg IM .X1 PRN PRN Reason: Hypoglycemia Heparin Sodium (Beef Lung) (Heparin 500 Unit/5 Ml (100/Ml)) 500 unit IV UD PRN PRN Reason: HEPARIN FLUSH Sodium Chloride () 1,000 mls @ 100 mls/hr IV .Q10H [facility] Stop: 05/19/19 17:49 Last Infusion: 05/19/19 11:13 Dose: Infused Documented by: Sodium Chloride () 1,000 mls @ 0 mls/hr IV .Q0M [facility] Dextrose (Dextrose 10%-Water) 250 mls @ 999 mls/hr IV .Q16M PRN; Protocol PRN Reason: HYPOGLYCEMIA Isosorbide Mononitrate (Imdur) 30 mg PO DAILY [facility] Labetalol HCl (Trandate) 5 mg IV X1 PRN PRN Reason: SBP > 160 prior to sheath pull Metoprolol Tartrate (Lopressor (Beta Mino)) 12.5 mg PO BID [facility] Last Admin: 05/19/19 07:01 Dose: 12.5 mg Documented by: Nitroglycerin (Nitrostat) 0.4 mg SUBLINGUAL Q5M PRN PRN Reason: Angina pain Ondansetron HCl (Zofran) 4 mg IV Q8H PRN PRN PRN Reason: NAUSEA/VOMITING Last Admin: 05/19/19 10:30 Dose: 4 mg Documented by: Pantoprazole Sodium (Protonix) 20 mg PO DAILY [facility] Last Admin: 05/19/19 12:02 Dose: 20 mg Documented by: Sodium Chloride () 10 - 40 ml IV UD PRN PRN Reason: SALINE FLUSH Last Admin: 05/19/19 10:34 Dose: 10 ml Documented by: Code Visit OBSV E&M: [id number] Observation care discharge
--- NOTE | 2019-05-19 10:56 | NURSING ---
@1045 patient was given 300cc bolus at 999mL/hr per MD, verbal order with read back.
[2019-05-19 11:01] LABS: Anion Gap 5 (5-15); BUN 25 mg/dL (7-18); BUN/Creat Ratio 19.1 RATIO (10-20); Calcium,Total 9.1 mg/dL (8.5-10.1); Chloride 113 mmol/L (98-107); Creatinine, Serum 1.31 mg/dL (0.70-1.30); EST Glomerular Filtration Rate 58 mL/min (>60); Est Glom Filt Rate - Afr Amer 70 mL/min (>60); Estimated Creatinine Clearance 45.19 ml/min; Glucose 82 mg/dL (74-106); Potassium 4.5 mmol/L (3.5-5.1); Sodium Level 144 mmol/L (136-145)
[2019-05-19] MEDS: Pantoprazole Sodium 20 MG Tablet PO (12:02)
--- NOTE | 2019-05-19 12:21 | PHA.DC.MC ---
Pharmacy Service has performed discharge medication reconciliation and counseling for this patient. The patient's discharge medication list was reviewed for discrepancies and discrepancies were resolved. Home Medications Ascorbic Acid [Vitamin C] 1,000 mg PO DAILY MDD supplement 05/18/19 Atorvastatin Calcium 40 mg PO QHS 05/18/19 Metoprolol Tartrate [Lopressor (beta rea)] 12.5 mg PO BID 05/18/19 Multivitamin with Minerals [Multiple Vitamin] 1 tab PO DAILY 05/18/19 Niacinamide [Niacin] 500 mg PO DAILY 05/18/19 [place]-3 Fatty Acids/Fish Oil [Fish Oil 1,000 mg Capsule] 1 cap PO DAILY 05/18/19 Omeprazole Magnesium [Prilosec Otc] 20 mg PO DAILY 05/18/19 Aspirin [Aspirin, Baby] 81 mg PO DAILY@0800 tab.chew 05/19/19 Isosorbide Mononitrate [Imdur] 30 mg PO DAILY #60 tab 05/19/19 The patient was counseled on the following discharge medications and changes in medications for homegoing were reviewed. 1. ISOSORBIDE MONONITRATE The Reason for Use, instructions for use, and potential side effects were reviewed for all new medications. The patient's questions regarding all of their medications were answered. The patient was able to verbally demonstrate an understanding of their discharge medications.
--- NOTE | 2019-05-19 13:16 | CASEMGMT ---
Per pt's , they have a MCR plan G supplement but she does not have copy of card with her at this time. Call to registration to update and they request that drop off copy of card when able. Pt/ updated at this time, voices understanding. Wily KWONG CM
--- NOTE | 2019-05-19 14:29 | CHAPLAIN ---
Type of Pastoral Visit _x__ Initial Visit ___ Follow-up Visit ___ On-call Visit ___ General Patient Visit ___ Spiritual Assessment ___ Family Conference ___ Bereavement ___ Rapid Response ___ Code Blue ___ Other (describe below) Pastoral Care Referral From _x__ Patient ___ Family ___ Nurse ___ Physician ___ Furrier Shop Supervisor ___ City Bailiff ___ Other (describe below) Sacrament/Intervention _x__ Active listening ___ Anointing ___ Quaker ___ Bereavement ___ Communion _x__ Shira exploration ___ _x__ Life review _x__ Prayer ___ Reconciliation ___ Sacrament of Sick ___ Supportive presence ___ Wedding ___ Other (describe below) Pastoral Comments
== END 2019-05-19 08:30 | disposition home or self-care (01) ==
LOC: ED 18:43 → PCU 19:55
PROVIDERS: Internal Medicine Cardiovascular Disease; Nurse Practitioner Family; Admitting Provider Hospitalist; Emergency Provider Emergency Medicine; Family Provider Internal Medicine; PCP Internal Medicine; Referring Provider Hospitalist; Visit Provider Internal Medicine
DX: R07.89 Other chest pain (principal); I10 Essential (primary) hypertension; I25.10 Atherosclerotic heart disease of native coronary artery without angina pectoris; E78.5 Hyperlipidemia, unspecified; K21.9 Gastro-esophageal reflux disease without esophagitis; Z79.899 Other long term (current) drug therapy; Z95.1 Presence of aortocoronary bypass graft; I25.82 Chronic total occlusion of coronary artery; Q25.46 Tortuous aortic arch; R93.1 Abnormal findings on diagnostic imaging of heart and coronary circulation
CPT/HCPCS: 36415; 71045; 80048; 80061; 84484; 85025; 93005; 93306; 93459; 93567; 96361; 96374; 99152; 99153; 99218; 99285; J7030; Q9957; Q9967; A4216; C1769; C8929; G0378; J2405

== ENCOUNTER → 2020-04-10 10:39 | Outpatient (CLI) | payer MEDICARE, OTHER, SELFPAY ==
[2020-04-10 08:58] VITALS: BMI 25.0
[2020-04-10 12:35] LABS: Absolute Lymphocyte Count 1.31 X10^3/uL (0.83-4.51); Absolute Neutrophil Count 4.8 X10^3/uL (2.0-7.7); Basophil# 0.03 X10^3/uL; Basophil% 0.4 % (0-1); Eosinophil# 0.11 X10^3/uL; Eosinophils% 1.6 % (0-5); Hematocrit 43.9 % (40-54); Hemoglobin 14.6 g/dL (13.0-16.5); Lymphocyte # 1.31 X10^3/ul (4.0); Lymphocyte % 19.1 % (19-41); Mean Corp Hgb Conc 33.3 g/dL (32-36); Mean Corpuscular Hgb 30.5 pg (27.0-32.0); Mean Corpuscular Volume 91.6 fL (80-94); Mean Platelet Vol. 8.2 fl (6.2-12.0); Monocyte# 0.59 X10^3/uL; Monocyte% 8.6 % (0-10); NRBC Flagged by Analyzer 0 % (0-5); Neutrophil # 4.78 X10^3/uL (2.7-7.7); Neutrophil % 69.7 % (47-70); Platelet Count 172 K/mm3 (150-450); RBC Distribution Width CV 12.1 % (11.6-14.6); RBC Distribution Width SD 40.6 fl (35.1-43.9); Red Blood Count 4.79 M/mm3 (4.6-6.2); White Blood Count 6.9 K/mm3 (4.4-11.0)
[2020-04-10 12:49] LABS: ALB/GLOB Ratio 0.7 RATIO (0.9-2.4); AST(SGOT) 22 U/L (15-37); Alanine Aminotransfer ALT/SGPT 29 U/L (16-61); Albumin, Serum 3.6 g/dL (3.2-5.0); Alkaline Phosphatase 93 U/L (45-117); Anion Gap 4 (5-15); BUN 26 mg/dL (7-18); BUN/Creat Ratio 19.5 RATIO (10-20); Calcium,Total 9.7 mg/dL (8.5-10.1); Chloride 108 mmol/L (98-107); Cholesterol 198 mg/dL (200); Creatinine, Serum 1.33 mg/dL (0.70-1.30); EST Glomerular Filtration Rate 57 mL/min (>60); Est Glom Filt Rate - Afr Amer 69 mL/min (>60); Globulin 5.2 g/dL (2.2-4.2); Glucose 88 mg/dL (74-106); High Density Lipoprotein 46 mg/dL; Potassium 4.5 mmol/L (3.5-5.1); Protein, Total 8.8 g/dL (6.4-8.2); Sodium Level 140 mmol/L (136-145); Triglycerides 163 mg/dL; Very Low Density Lipoprotein 33 mg/dL (5-40)
== END ==
PROVIDERS: PCP Internal Medicine; Referring Provider Internal Medicine; Visit Provider Internal Medicine
DX: I10 Essential (primary) hypertension (principal); E78.5 Hyperlipidemia, unspecified; I25.10 Atherosclerotic heart disease of native coronary artery without angina pectoris
CPT/HCPCS: 36415; 80053; 80061; 85025

== ENCOUNTER → 2020-10-15 09:37 | Outpatient (CLI) | payer MEDICARE, OTHER, SELFPAY ==
[2020-10-15 08:37] VITALS: BMI 25.0
[2020-10-15 12:44] LABS: Absolute Neutrophil Count 3.5 X10^3/uL (2.0-7.7); Basophil# 0.03 X10^3/uL; Basophil% 0.5 % (0-1); Eosinophil# 0.13 X10^3/uL; Eosinophils% 2.1 % (0-5); Hematocrit 43.2 % (40-54); Hemoglobin 14.5 g/dL (13.0-16.5); Lymphocyte % 31.9 % (19-41); Mean Corp Hgb Conc 33.6 g/dL (32-36); Mean Corpuscular Hgb 30.7 pg (27.0-32.0); Mean Corpuscular Volume 91.5 fL (80-94); Mean Platelet Vol. 8.8 fl (6.2-12.0); Monocyte# 0.63 X10^3/uL; Monocyte% 10.1 % (0-10); NRBC Flagged by Analyzer 0 % (0-5); Neutrophil # 3.45 X10^3/uL (2.7-7.7); Neutrophil % 55.1 % (47-70); Platelet Count 135 K/mm3 (150-450); RBC Distribution Width CV 12.5 % (11.6-14.6); Red Blood Count 4.72 M/mm3 (4.6-6.2); White Blood Count 6.3 K/mm3 (4.4-11.0)
[2020-10-15 13:17] LABS: ALB/GLOB Ratio 0.7 RATIO (0.9-2.4); AST(SGOT) 30 U/L (15-37); Alanine Aminotransfer ALT/SGPT 30 U/L (16-61); Albumin, Serum 3.4 g/dL (3.2-5.0); Alkaline Phosphatase 89 U/L (45-117); Anion Gap 4 (5-15); BUN 27 mg/dL (7-18); BUN/Creat Ratio 20.6 RATIO (10-20); Calcium,Total 9.6 mg/dL (8.5-10.1); Chloride 106 mmol/L (98-107); Cholesterol 161 mg/dL (200); Creatinine, Serum 1.31 mg/dL (0.70-1.30); EST Glomerular Filtration Rate 58 mL/min (>60); Est Glom Filt Rate - Afr Amer 70 mL/min (>60); Globulin 5.2 g/dL (2.2-4.2); Glucose 92 mg/dL (74-106); High Density Lipoprotein 46 mg/dL; PSA,Total - Annual Screen 1.35 ng/mL (0.00-4.00); Potassium 4.6 mmol/L (3.5-5.1); Protein, Total 8.6 g/dL (6.4-8.2); Sodium Level 138 mmol/L (136-145); Triglycerides 104 mg/dL; Very Low Density Lipoprotein 21 mg/dL (5-40)
[2020-10-15 13:18] LABS: Vitamin D,25 Hydroxy 45.3 ng/mL
== END ==
PROVIDERS: PCP Internal Medicine; Referring Provider Internal Medicine; Visit Provider Internal Medicine
DX: E78.5 Hyperlipidemia, unspecified (principal); I10 Essential (primary) hypertension; K21.9 Gastro-esophageal reflux disease without esophagitis; Z95.1 Presence of aortocoronary bypass graft; E55.9 Vitamin D deficiency, unspecified; Z12.5 Encounter for screening for malignant neoplasm of prostate
CPT/HCPCS: 36415; 80053; 80061; 82306; 84153; 84443; 85025; G0103

== ENCOUNTER → 2021-04-09 09:15 | Outpatient (CLI) | payer MEDICARE, OTHER, SELFPAY ==
[2021-04-09 12:10] LABS: Absolute Lymphocyte Count 1.67 X10^3/uL (0.83-4.51); Absolute Neutrophil Count 3.4 X10^3/uL (2.0-7.7); Basophil# 0.03 X10^3/uL; Basophil% 0.5 % (0-1); Eosinophils% 1.7 % (0-5); Hematocrit 41.8 % (40-54); Hemoglobin 14.4 g/dL (13.0-16.5); Lymphocyte # 1.67 X10^3/ul (0.83-4.51); Lymphocyte % 28.6 % (19-41); Mean Corp Hgb Conc 34.4 g/dL (32-36); Mean Corpuscular Hgb 31.4 pg (27.0-32.0); Mean Corpuscular Volume 91.1 fL (80-94); Mean Platelet Vol. 8.3 fl (6.2-12.0); Monocyte# 0.57 X10^3/uL; Monocyte% 9.8 % (0-10); NRBC Flagged by Analyzer 0 % (0-5); Neutrophil # 3.44 X10^3/uL (2.7-7.7); Neutrophil % 59.1 % (47-70); Platelet Count 145 K/mm3 (150-450); RBC Distribution Width CV 12.2 % (11.6-14.6); RBC Distribution Width SD 40.2 fl (35.1-43.9); Red Blood Count 4.59 M/mm3 (4.6-6.2); White Blood Count 5.8 K/mm3 (4.4-11.0)
[2021-04-09 12:30] LABS: ALB/GLOB Ratio 0.7 RATIO (0.9-2.4); AST(SGOT) 27 U/L (15-37); Alanine Aminotransfer ALT/SGPT 27 U/L (16-61); Albumin, Serum 3.5 g/dL (3.2-5.0); Alkaline Phosphatase 74 U/L (45-117); Anion Gap 4 (5-15); BUN 28 mg/dL (7-18); BUN/Creat Ratio 21.9 RATIO (10-20); Calcium,Total 9.7 mg/dL (8.5-10.1); Chloride 107 mmol/L (98-107); Cholesterol 161 mg/dL (200); Creatinine, Serum 1.28 mg/dL (0.70-1.30); EST Glomerular Filtration Rate 59 mL/min (>60); Est Glom Filt Rate - Afr Amer 71 mL/min (>60); Glucose 101 mg/dL (74-106); High Density Lipoprotein 46 mg/dL; Potassium 4.5 mmol/L (3.5-5.1); Protein, Total 8.5 g/dL (6.4-8.2); Sodium Level 140 mmol/L (136-145); Triglycerides 80 mg/dL; Very Low Density Lipoprotein 16 mg/dL (5-40)
== END ==
PROVIDERS: PCP Internal Medicine; Referring Provider Internal Medicine; Visit Provider Internal Medicine
DX: I25.10 Atherosclerotic heart disease of native coronary artery without angina pectoris (principal); Z95.1 Presence of aortocoronary bypass graft; E78.5 Hyperlipidemia, unspecified; I10 Essential (primary) hypertension
CPT/HCPCS: 36415; 80053; 80061; 85025

== ENCOUNTER 2021-06-14 09:43 | Outpatient (CLI) | payer MEDICARE, OTHER, SELFPAY ==
[2021-06-14 11:15] LABS: ALB/GLOB Ratio 0.7 RATIO (0.9-2.4); AST(SGOT) 22 U/L (15-37); Alanine Aminotransfer ALT/SGPT 34 U/L (16-61); Albumin, Serum 3.2 g/dL (3.2-5.0); Alkaline Phosphatase 83 U/L (45-117); Anion Gap 2 (5-15); BUN 27 mg/dL (7-18); BUN/Creat Ratio 21.1 RATIO (10-20); Calcium,Total 9.4 mg/dL (8.5-10.1); Chloride 106 mmol/L (98-107); Creatinine, Serum 1.28 mg/dL (0.70-1.30); EST Glomerular Filtration Rate 59 mL/min (>60); Est Glom Filt Rate - Afr Amer 71 mL/min (>60); Globulin 4.9 g/dL (2.2-4.2); Glucose 99 mg/dL (74-106); Potassium 4.7 mmol/L (3.5-5.1); Protein, Total 8.1 g/dL (6.4-8.2); Sodium Level 138 mmol/L (136-145)
== END 2021-06-14 23:59 | disposition short-term general hospital (02) ==
LOC: BIMLAB 09:44
PROVIDERS: PCP Internal Medicine; Referring Provider Internal Medicine; Visit Provider Internal Medicine
DX: R77.1 Abnormality of globulin (principal)
CPT/HCPCS: 36415; 80053

== ENCOUNTER → 2022-05-08 | Outpatient (CLI) | payer MEDICARE, OTHER, SELFPAY ==
[2022-05-08 11:12] LABS: Absolute Neutrophil Count 3.1 X10^3/uL (2.0-7.7); Basophil# 0.04 X10^3/uL; Basophil% 0.7 % (0-1); Eosinophil# 0.17 X10^3/uL; Hematocrit 42.6 % (40-54); Hemoglobin 15.3 g/dL (13.0-16.5); Lymphocyte % 31.7 % (19-41); Mean Corp Hgb Conc 35.9 g/dL (32-36); Mean Corpuscular Hgb 32.5 pg (27.0-32.0); Mean Corpuscular Volume 90.4 fL (80-94); Mean Platelet Vol. 8.3 fl (6.2-12.0); Monocyte# 0.55 X10^3/uL; Monocyte% 9.7 % (0-10); NRBC Flagged by Analyzer 0 % (0-5); Neutrophil # 3.11 X10^3/uL (2.7-7.7); Neutrophil % 54.7 % (47-70); Platelet Count 136 K/mm3 (150-450); RBC Distribution Width SD 39.8 fl (35.1-43.9); Red Blood Count 4.71 M/mm3 (4.6-6.2); White Blood Count 5.7 K/mm3 (4.4-11.0)
[2022-05-08 11:40] LABS: Vitamin D,25 Hydroxy 45.3 ng/mL
[2022-05-08 11:50] LABS: ALB/GLOB Ratio 0.8 RATIO (0.9-2.4); AST(SGOT) 26 U/L (15-37); Alanine Aminotransfer ALT/SGPT 27 U/L (16-61); Albumin, Serum 3.7 g/dL (3.2-5.0); Alkaline Phosphatase 77 U/L (45-117); Anion Gap 4 (5-15); BUN 27 mg/dL (7-18); Calcium,Total 9.9 mg/dL (8.5-10.1); Chloride 104 mmol/L (98-107); Cholesterol 185 mg/dL (200); Creatinine, Serum 1.35 mg/dL (0.70-1.30); EST Glomerular Filtration Rate 55 mL/min (>60); Est Glom Filt Rate - Afr Amer 67 mL/min (>60); Globulin 4.7 g/dL (2.2-4.2); Glucose 86 mg/dL (74-106); High Density Lipoprotein 41 mg/dL; PSA,Total - Annual Screen 1.44 ng/mL (0.00-4.00); Potassium 4.3 mmol/L (3.5-5.1); Protein, Total 8.4 g/dL (6.4-8.2); Sodium Level 139 mmol/L (136-145); Thyroid Stim Hormone (TSH) 1.98 uIU/mL (0.358-3.74); Triglycerides 147 mg/dL; Very Low Density Lipoprotein 29 mg/dL (5-40)
== END | disposition home or self-care (01) ==
LOC: LAB 09:49
PROVIDERS: PCP Internal Medicine; Visit Provider Internal Medicine
DX: R77.1 Abnormality of globulin (principal); E78.5 Hyperlipidemia, unspecified; Z12.5 Encounter for screening for malignant neoplasm of prostate; Z75.1 Person awaiting admission to adequate facility elsewhere; I10 Essential (primary) hypertension; I25.10 Atherosclerotic heart disease of native coronary artery without angina pectoris; E55.9 Vitamin D deficiency, unspecified
CPT/HCPCS: 36415; 80053; 80061; 82306; 84153; 84443; 85025; G0103

== ENCOUNTER → 2023-01-12 | Outpatient (CLI) | payer MEDICARE, OTHER, SELFPAY ==
--- NOTE | 2023-01-12 13:09 | CT_ITS ---
STUDY: CT ABDOMEN AND PELVIS WITHOUT CONTRAST REASON FOR EXAM: Male, 72 years old. History of kidney stones. Bilateral flank pain for one month. RADIATION DOSAGE (If Supplied By Facility): CTDIvol = ( 7.24 ) mGy, DLP = ( 335.91 ) mGycm TECHNIQUE: Transaxial images were obtained from the dome of the diaphragm to the symphysis pubis without oral contrast, and without intravenous contrast. Sagittal and coronal images were reconstructed. Individualized dose optimization techniques were used for this CT. COMPARISON: None. FINDINGS: The visualized lung bases are unremarkable. Prior CABG. Normal liver. Normal gallbladder and extrahepatic biliary system. Normal spleen. Normal pancreas. Normal bilateral adrenal glands. There is a 2 cm x 1.4 cm complex cyst in the midportion of the lateral aspect of the right kidney with a peripheral calcification. 3 mm nonobstructive calculus in the lower pole calyx of the right kidney. There is a 3 cm x 3 cm cyst in the upper medial portion of the left kidney. There is a 1 cm x 0.6 cm calculus in the lower pole OF the left kidney. 1.6 cm cyst in the posterior aspect of the left kidney in the lower pole as well as a 6.5 mm cyst in the anterior midportion of the left kidney. Incidental note is made of a left retrocardiac aortic renal vein. Normal visualized stomach. Normal small intestine. Normal colon. The patient is status post appendectomy. There is scattered atherosclerotic calcification of the abdominal aorta, without a demonstrated aneurysm. Normal inferior vena cava. Normal retroperitoneum. Diffuse bladder wall thickening although the bladder is not completely distended at this time. Small bilateral inguinal hernias slightly worse on the left side. There are degenerative changes of the visualized lumbar spine. CT/Abdomen/Pelvis without Cont IMPRESSION: Nonobstructive bilateral intrarenal calculi more prominent on the left side. Bilateral renal cysts more prominent on the left side. Complex cyst in the lateral aspect of the right kidney with the peripheral calcification. Electronically Signed: Danny Jeronimo MD at 13:46 EDT ,
== END | disposition home or self-care (01) ==
LOC: CT 13:03
PROVIDERS: PCP Internal Medicine; Referring Provider Internal Medicine; Visit Provider Internal Medicine
DX: N20.0 Calculus of kidney (principal)
CPT/HCPCS: 74176

== ENCOUNTER 2023-03-11 12:35 | Day surgery (SDC) | payer MEDICARE, OTHER, SELFPAY ==
--- NOTE | 2023-03-09 11:10 | RAD_ITS ---
INDICATION: LEFT KIDNEY STONE/PREOP EXAMINATION/TECHNIQUE: X-RAY - XR Abdomen 1 View COMPARISON: January 12, 2023 FINDINGS: BOWEL GAS PATTERN: Nonspecific non-obstructive bowel gas pattern. No focal stomach or bowel distention. Large colonic stool burden. FREE AIR: Not well assessed on a supine view. ORGANOMEGALY: Not seen. CALCIFICATIONS: Left renal lower pole 1cm irregular stone. LOWER CHEST: No acute pathology. BONES AND SOFT TISSUES: No acute pathology. Right groin surgical clips. L4-L5 and L5-S1 facet arthropathy. RAD/Abdomen Single View IMPRESSION: Non-obstructive bowel gas pattern. Large colonic stool burden. Left renal lower pole 1cm irregular stone. Electronically Signed: Kiran Gill MD at 4:19 EDT ,
--- NOTE | 2023-03-11 12:46 | RAD_ITS ---
INDICATION: surgery EXAMINATION/TECHNIQUE: X-RAY - XR Abdomen 1 View COMPARISON: CT dated January 12, 2023 and radiograph dated March 09, 2023 FINDINGS: BOWEL GAS PATTERN: Non-obstructive. No bowel or stomach distention. FREE AIR: Not assessed on a single supine view. ORGANOMEGALY: Not seen. CALCIFICATIONS: Within the expected region of the left kidney there is a 9 mm calcific density. BONES AND SOFT TISSUES: No acute pathology. RAD/Abdomen Single View IMPRESSION: Nonspecific bowel gas pattern. 9 mm left renal calculus. Electronically Signed: Simran Shi MD at 12:57 EDT ,
[2023-03-11 13:15] VITALS: BP 151/99; PULSE 55; RESP 16; TEMP 36.7; O2SAT 100; BMI 24.2
--- NOTE | 2023-03-11 13:38 | HP.PCM_ITS ---
HPI - General General Date of Service: 03/11/23 Chief Complaint: Left kidney stone HPI Narrative SARA STEINER, is a 72 M who presents for shockwave lithotripsy and treatment of the left kidney stone and stent placement [facility] Medical History (Updated 03/04/23 @ 14:06 by Kelsie Guido) Alcohol use Atherosclerosis of coronary artery of [place] heart without angina pectoris Back pain Cardiology follow-up encounter Essential (primary) hypertension GERD (gastroesophageal reflux disease) High cholesterol History of CHF (congestive heart failure) History of echocardiogram History of ulceration Hyperlipidemia Non-smoker Wears contact lenses Home Medications ascorbic acid (vitamin C) 1,000 mg tablet 1,000 mg PO DAILY supplement 05/18/19 [History Last Taken 05/18/19] multivitamin with minerals 1 tab PO DAILY supplement 05/18/19 [History Last Taken 05/18/19] omega-3 fatty acids-fish oil 340 mg-1,000 mg capsule 1 cap PO DAILY supplement 05/18/19 [History Last Taken 03/04/23] omeprazole magnesium 20 mg tablet,delayed release 20 mg PO DAILY reflux 05/18/19 [History Last Taken 05/18/19] aspirin 81 mg chewable tablet 81 mg PO DAILY@0800 05/19/19 [Rx Last Taken 03/04/23] atorvastatin 40 mg tablet 40 mg PO QHS #90 tabs 12/25/21 [Rx Last Taken Unknown] metoprolol tartrate 25 mg tablet 12.5 mg (1/2 x 25 mg) PO BID blood pressure #135 tabs 06/04/22 [Rx Last Taken 03/11/23 08:00] isosorbide mononitrate 30 mg tablet,extended release 24 hr 30 mg PO DAILY #90 tabs 01/21/23 [Rx Last Taken Unknown] Allergy/AdvReac Type Severity Reaction Status Date / Time No Known Allergies Allergy Verified 03/04/23 13:57 Family History Mother Heart disease Father Heart disease Surgical History H/O coronary artery bypass surgery (11/30/15) History of appendectomy History of left heart catheterization (05/19/19) History of tonsillectomy Social History Smoking Status: Never smoker alcohol intake: never substance use type: does not use frequency: 3-4 times per week Vital Signs Vital Signs Vital Signs: 03/11/23 13:15 03/11/23 13:15 Temperature 98.1 F Temperature Source Temporal Pulse Rate 55 L Respiratory Rate 16 Respiratory Pattern Normal Blood Pressure 151/99 H Blood Pressure Mean 116 Blood Pressure Source Monitor Blood Pressure Position Semi-Fowlers Blood Pressure Location Right Arm Pulse Ox 100 Oxygen Delivery Method Room Air Weight Weight: 66 kg Body Mass Index (BMI) 24.2 Results Radiology Impression KUB X-Ray 03/11/23 12:46 IMPRESSION: Nonspecific bowel gas pattern. 9 mm left renal calculus. Electronically Signed: Simran Shi MD at 12:57 EDT ,
[2023-03-11] MEDS: Lactated Ringers 1,000 ML 15 ML IV (13:39)
[2023-03-11] MEDS: Cefazolin 2 GM in 0.9% Normal Saline (100mL Bag) 100 ML IV (14:11)
--- NOTE | 2023-03-11 14:31 | DCINST_ITS ---
Discharge Instructions Diet Discharge Diet: No restrictions Activity Discharge Activity: Return to Normal Activity and May Not Drive (while taking narcotic pain medications.) Dressing / Incision Call your doctor if you observe: Fever of 101 or Higher Follow Up Care Please Follow Up With: Stu Nicolas MD When: Call [phone] for an appointment Test Results: Test results from this visit will be discussed in further detail at your follow- up appointment, if applicable. Discharge Plan Admission Attending Provider: Stu Nicolas Primary Care Provider: Tanisha Oshea Discharge Orders/Prescriptions Prescriptions: No Action atorvastatin 40 mg tablet 40 mg PO QHS Qty: 90 3RF ascorbic acid (vitamin C) 1,000 MG tablet 1,000 mg PO DAILY MDD supplement multivitamin with minerals 1 EACH tablet 1 tab PO DAILY omeprazole magnesium 20 MG tablet,delayed release (DR/EC) 20 mg PO DAILY omega-3 fatty acids-fish oil 1 EACH capsule 1 cap PO DAILY aspirin 81 MG tablet,chewable 81 mg PO DAILY@0800 0RF metoprolol tartrate 25 mg tablet 12.5 mg PO BID Qty: 135 3RF isosorbide mononitrate 30 mg tablet extended release 24 hr 30 mg PO DAILY Qty: 90 3RF Referrals / Follow Up: Tanisha Oshea MD [Primary Care Provider] - Disposition Disposition (needs filled in before D/C Order can be placed): Home, Self Care
--- NOTE | 2023-03-11 15:06 | OP.PCM_ITS ---
Report of Operation Date of Procedure: 03/11/23 Pre-Operative Diagnosis: Left kidney stone Post-Operative Diagnosis: The same Surgery/Procedure Performed:: Cystoscopy left stent placement and left ESWL Description of Surgical Findings:: Patient presents to the hospital for treatment of a kidney stone with shockwave lithotripsy. In the preoperative area and x-ray was done to confirm the location of the stone. The x-ray was reviewed and the stone location was reviewed. In the preoperative setting I spoke with the patient regarding the treatment of the stone how the treatment would be conducted and the expectations after surgery. The patient understands there is a risk of bleeding and infection. Also discussed the very rare risk of hematoma or damage to the kidney. We also discussed the risk that the shockwave machine will fail to break the stone adequately and that the patient may need other surgical procedures. We also discussed the possibility that the patient may need a stent after the procedure. After reviewing the procedure with the patient, the patient is signed the consent form all the patient's questions were addressed and was taken back to the operating room for treatment of a kidney stone. Patient was taken back to the operating room, patient was identified by the nursing staff, we identified the side of the treatment and the patient side of treatment had been marked by my initials. The patient underwent general anesthetic and was placed supine on the lithotripter table. We then used fluoroscopy to identify the stone on the Left side. Using a 21 [place] rigid cystourethroscope the entire length of the urethra was normal then went into the bladder. Identified the trigone the left and right ureteral orifice. I then cannulated the Left orifice and advanced a wire up into the kidney. I then broderick kloaded a 5 [place] open ended catheter over the wire and injected contrast to delineate the anatomy. After the retrograde was performed I then used fluoroscopic images and guidance to advanced a wire up into the kidney and over the 0.038 glidewire I advanced a 6 [place] by 26 cm double pigtail stent. I then pulled the 0.038 Glidewire off and the stent coiled in the kidney bladder good position. The bladder was then drained. We then positioned the patient under the lithotripter and we used triangulation technique to identify the location of the stone and then we made sure that the stone was engaged in the F2 focal point of F2 Donier lithoprior machine. Once the patient was positioned appropriately and the stone was identified and placed in the F2 focal point of the lithotripter machine we then proceeded with shockwave lithotripsy. In the beginning the shockwave was delivered at a rate of 90 shocks per minute, we monitor the EKG for any ectopy. The power was slowly increased to 5 kV and subsequently at the 7 kV. We then proceeded with the treatment we move the therapy had around during the treatment to make sure the stone stayed in the F2 focal point during the entire treatment and after 3000 shockwaves were delivered to the stone under fluoroscopic guidance the treatment was completed. The patient was given instructions to call the office to make an a follow-up appointment with an xray to evaluate the success of the treatment, pateint understands that its possible the stones may need another procedure.At this point the patient's anesthetic was reversed patient was extubated and taken back to the PACU in stable condition. Surgeon: Stu Nicolas Type of Anesthesia: General Drains: stent left Estimated Blood Loss (mL): 0 Admit VTE Documentation VTE Present on Admission: No VTE Mechan Device Prophylaxis: SCD's VTE Pharm Prophylaxis ordered?: No
[2023-03-11 15:18] VITALS: BP 139/88; BP 151/99; PULSE 65; RESP 16; TEMP 37.2; O2SAT 98
[2023-03-11 15:30] VITALS: BP 128/82; BP 151/99; PULSE 63; RESP 16; O2SAT 98
[2023-03-11] MEDS: Lactated Ringers 1,000 ML 75 ML IV (15:34)
[2023-03-11 15:36] VITALS: BP 134/85; BP 151/99; PULSE 74; RESP 16; TEMP 36.6; O2SAT 100
[2023-03-11 16:20] VITALS: BP 151/99; BP 155/95; PULSE 58; RESP 16; TEMP 36.3; O2SAT 100
== END 2023-03-11 16:39 | disposition home or self-care (01) ==
LOC: SDC 12:36 → AC 12:37
PROVIDERS: PCP Internal Medicine; Referring Provider Urology; Visit Provider Urology
PROC: (CPT 50590; principal; 2023-03-11 14:15)
DX: N20.0 Calculus of kidney (principal); E78.5 Hyperlipidemia, unspecified; I25.10 Atherosclerotic heart disease of native coronary artery without angina pectoris; Z79.82 Long term (current) use of aspirin; I10 Essential (primary) hypertension; K21.9 Gastro-esophageal reflux disease without esophagitis; Z95.1 Presence of aortocoronary bypass graft; Z90.49 Acquired absence of other specified parts of digestive tract; Z90.89 Acquired absence of other organs; Z86.79 Personal history of other diseases of the circulatory system
CPT/HCPCS: 50590; 52332; 00873; 74018; J7120; C1769; C2617; J2405

== ENCOUNTER → 2023-05-04 | Outpatient (CLI) | payer MEDICARE, OTHER, SELFPAY ==
--- NOTE | 2023-05-04 11:18 | RAD_ITS ---
STUDY: X-RAY - ABDOMEN/PELVIS REASON FOR EXAM: Male, 72 years old. Renal calculi. TECHNIQUE: Single AP view of the abdomen / pelvis 2 images. COMPARISON: Abdominal x-ray dated March 11, [address] of the abdomen and pelvis dated January 12, 2023 FINDINGS: Normal visualized lung bases. Normal bowel gas pattern. Stable calcifications projected over the left renal shadow. Normal soft tissue structures. Normal visualized osseous structures. RAD/Abdomen Single View IMPRESSION: Stable abdomen with no acute finding. Electronically Signed: Derian Bryant MD at 10:24 EST ,
[2023-05-04 11:30] LABS: Absolute Lymphocyte Count 1.74 X10^3/uL (0.83-4.51); Absolute Neutrophil Count 2.7 X10^3/uL (2.0-7.7); Basophil# 0.02 X10^3/uL; Basophil% 0.4 % (0-1); Eosinophils% 1.9 % (0-5); Hematocrit 43.5 % (40-54); Hemoglobin 14.8 g/dL (13.0-16.5); Lymphocyte # 1.74 X10^3/ul (0.83-4.51); Lymphocyte % 33.7 % (19-41); Mean Corpuscular Volume 91.2 fL (80-94); Mean Platelet Vol. 8.2 fl (6.2-12.0); Monocyte# 0.56 X10^3/uL; Monocyte% 10.8 % (0-10); NRBC Flagged by Analyzer 0 % (0-5); Neutrophil # 2.73 X10^3/uL (2.7-7.7); Neutrophil % 52.8 % (47-70); Platelet Count 151 K/mm3 (150-450); RBC Distribution Width CV 12.1 % (11.6-14.6); RBC Distribution Width SD 40.5 fl (35.1-43.9); Red Blood Count 4.77 M/mm3 (4.6-6.2); White Blood Count 5.2 K/mm3 (4.4-11.0)
[2023-05-04 11:53] LABS: Vitamin D,25 Hydroxy 93.1 ng/mL
[2023-05-04 12:03] LABS: ALB/GLOB Ratio 0.7 RATIO (0.9-2.4); AST(SGOT) 25 U/L (15-37); Alanine Aminotransfer ALT/SGPT 28 U/L (16-61); Albumin, Serum 3.5 g/dL (3.2-5.0); Alkaline Phosphatase 76 U/L (45-117); Anion Gap 4 (5-15); BUN 27 mg/dL (7-18); BUN/Creat Ratio 18.4 RATIO (10-20); Calcium,Total 9.5 mg/dL (8.5-10.1); Chloride 106 mmol/L (98-107); Cholesterol 179 mg/dL (200); Creatinine, Serum 1.47 mg/dL (0.70-1.30); EST Glomerular Filtration Rate 50 mL/min (>60); Est Glom Filt Rate - Afr Amer 61 mL/min (>60); Globulin 4.8 g/dL (2.2-4.2); Glucose 94 mg/dL (74-106); High Density Lipoprotein 43 mg/dL; Potassium 4.4 mmol/L (3.5-5.1); Protein, Total 8.3 g/dL (6.4-8.2); Sodium Level 139 mmol/L (136-145); Thyroid Stim Hormone (TSH) 1.48 uIU/mL (0.358-3.74); Triglycerides 134 mg/dL; Very Low Density Lipoprotein 27 mg/dL (5-40)
== END | disposition home or self-care (01) ==
PROVIDERS: PCP Internal Medicine; Referring Provider Internal Medicine; Visit Provider Internal Medicine
DX: Z12.5 Encounter for screening for malignant neoplasm of prostate (principal); N20.0 Calculus of kidney; E55.9 Vitamin D deficiency, unspecified; E78.5 Hyperlipidemia, unspecified; I10 Essential (primary) hypertension; Z95.1 Presence of aortocoronary bypass graft; I25.10 Atherosclerotic heart disease of native coronary artery without angina pectoris; Z13.220 Encounter for screening for lipoid disorders
CPT/HCPCS: 36415; 74018; 80053; 80061; 82306; 84153; 84443; 85025; G0103

== ENCOUNTER → 2023-08-20 | Outpatient (CLI) | payer MEDICARE, OTHER, SELFPAY ==
--- NOTE | 2023-08-20 06:33 | ECHOCS_ITS ---
Version 2 Reason For Study: CAD Procedure This was a 2D Doppler, Color Flow transthoracic echocardiogram. The study was technically difficult. Contrast injection was performed. Exam performed in department. Left Ventricle Normal LV size. Left ventricular systolic function is normal. The estimated ejection fraction is 60 %. Stage 1 diastolic dysfunction. No regional wall motion abnormalities noted. Right Ventricle Normal RV size. Normal systolic function. Atria Normal left atrium. Normal right atrium. Mitral Valve Normal mitral valve. Tricuspid Valve Normal tricuspid valve. Aortic Valve Trisinus/trileaflet aortic valve. Mild focal aortic valve calcification. Pulmonic Valve Normal pulmonic valve. Great Vessels Normal aortic root. The pulmonary artery is normal size. Normal inferior vena cava. Pericardium/Pleural No pericardial effusion. Medication Diluted definity 3ml given slow IV push to enhance endocardial definition. MMode/2D Measurements & Calculations Ao root diam: 3.3 cm LAV(MOD-bp): 36.2 ml LVAd ap4: 23.1 cm2 LAV(MOD-bp) Indexed: 21.2 ml/m2 LVLd ap4: 7.7 cm LAV(MOD-sp2): 32.3 ml EDV(MOD-sp4): 56.6 ml LAV(MOD-sp4): 36.6 ml EDV(sp4-el): 59.1 ml LVAs ap4: 12.6 cm2 LVLs ap4: 6.2 cm ESV(MOD-sp4): 21.2 ml ESV(sp4-el): 21.6 ml EF(MOD-sp4): 62.6 % EF(sp4-el): 63.5 % SV(MOD-sp4): 35.4 ml SV(sp4-el): 37.5 ml LA A4 area: 15.8 cm2 LA dimension(2D): 3.6 cm TAPSE: 1.4 cm RA A4 area: 14.6 cm2 Time Measurements MV dec time: 0.16 sec Doppler Measurements & Calculations MV E max colt: 69.5 cm/sec Lat Peak E' Colt: 9.9 cm/sec Med Peak E' Colt: 4.1 cm/sec MV A max colt: 92.1 cm/sec E/E' lat: 7.0 E/E' med: 16.9 MV E/A: 0.75 MV V2 max: 94.0 cm/sec MV dec slope: 447.1 cm/sec2 Ao V2 max: 122.3 cm/sec MV max P.5 mmHg Ao max P.0 mmHg MV V2 mean: 53.9 cm/sec Ao V2 mean: 87.4 cm/sec MV mean P.4 mmHg Ao mean P.4 mmHg MV V2 VTI: 17.8 cm Ao V2 VTI: 25.1 cm AV (velocity ratio): 0.71 LV V1 max: 91.0 cm/sec PA V2 max: 117.7 cm/sec LV V1 max P.3 mmHg PA V2 mean: 71.3 cm/sec LV V1 mean P.1 mmHg LV V1 mean: 68.9 cm/sec LV V1 VTI: 17.9 cm ECHO/Echo Complete W/ Contrast Interpretation Summary Normal LV size. Left ventricular systolic function is normal. The estimated ejection fraction is 60 %. Mild focal aortic valve calcification. Stage 1 diastolic dysfunction. Contrast injection was performed. Ordering Physician: Randy Jimenez Referring Physician: Randy Jimenez Performed By: Valeri Ricketts RCS
--- NOTE | 2023-08-20 13:09 | STRESSREP ---
Stress Test Report Exercise myocardial perfusion stress test. 72-year-old male with a history of coronary disease Stress protocol: Resting EKG demonstrates normal sinus rhythm with a rate of 78 bpm resting blood pressure is 136/80 mmHg. The patient exercised according to the regular Vahe protocol for a total duration of 7 minutes attaining a maximum heart rate of 155 bpm which was 104% of maximum predicted heart rate; the maximum workload was 10.1 metabolic equivalents. At rest there were no ST or T wave changes noted to suggest ischemia and at peak exercise upsloping ST changes only were noted which did not meet the criteria for ischemia. No clinical angina was noted the test was terminated due to the target heart rate being achieved/fatigue. The peak blood pressure was 206/88 mmHg. Rate-pressure product was 30,900. Myocardial perfusion protocol. [11.8] mCi of technetium 99m sestamibi was injected at rest. The patient exercised according to regular Vahe protocol for total duration of 7 minutes and at peak exercise 33.8 mCi of technetium 99m sestamibi was injected stress images were obtained stress and rest images were reconstructed in comparing the short axis vertical long and horizontal long axis. Gated images were also obtained. Perfusion SPECT analysis: Review of the stress images demonstrate normal uptake of tracer noted in all areas of the myocardium. The resting images similarly demonstrate normal uptake of tracer noted in all areas of the myocardium. No areas of reversibility are noted to suggest ischemia no previous infarct was noted. Gated SPECT analysis: The gated ejection fraction is 74%. Conclusion: Normal exercise myocardial perfusion stress test at a moderate workload Preserved ejection fraction.
== END | disposition home or self-care (01) ==
LOC: CVS 06:31
PROVIDERS: PCP Internal Medicine; Referring Provider Internal Medicine Cardiovascular Disease; Visit Provider Internal Medicine Cardiovascular Disease
DX: I25.10 Atherosclerotic heart disease of native coronary artery without angina pectoris (principal); Z95.1 Presence of aortocoronary bypass graft
CPT/HCPCS: 78452; 93017; 93306; A9500; Q9957; A4216; C8929

== ENCOUNTER → 2024-10-10 | Outpatient (CLI) | payer MEDICARE, SELFPAY ==
[2024-10-10 10:25] LABS: Absolute Lymphocyte Count 1.76 X10^3/uL (0.83-4.51); Absolute Neutrophil Count 2.6 X10^3/uL (2.0-7.7); Basophil# 0.04 X10^3/uL; Basophil% 0.7 % (0-1); Eosinophil# 0.28 X10^3/uL; Eosinophils% 5.2 % (0-5); Hematocrit 39.8 % (40-54); Hemoglobin 13.8 g/dL (13.0-16.5); Lymphocyte # 1.76 X10^3/ul (0.83-4.51); Lymphocyte % 32.8 % (19-41); Mean Corp Hgb Conc 34.7 g/dL (32-36); Mean Corpuscular Hgb 31.9 pg (27.0-32.0); Mean Corpuscular Volume 92.1 fL (80-94); Mean Platelet Vol. 8.5 fl (6.2-12.0); Monocyte# 0.62 X10^3/uL; Monocyte% 11.6 % (0-10); NRBC Flagged by Analyzer 0 % (0-5); Neutrophil # 2.63 X10^3/uL (2.7-7.7); Neutrophil % 49.1 % (47-70); Platelet Count 131 K/mm3 (150-450); RBC Distribution Width CV 12.3 % (11.6-14.6); RBC Distribution Width SD 41.6 fl (35.1-43.9); Red Blood Count 4.32 M/mm3 (4.6-6.2); White Blood Count 5.4 K/mm3 (4.4-11.0)
[2024-10-10 11:12] LABS: Cholesterol 174 mg/dL (<=200); High Density Lipoprotein 40 mg/dL; Low Density Lipoprotein Calc. 105 mg/dL; Magnesium 2.2 mg/dL (1.5-2.2); Triglycerides 145 mg/dL; Very Low Density Lipoprotein 29 mg/dL (5-40); cholesterol:hdl ratio screen 4.39
[2024-10-10 11:15] LABS: ALB/GLOB Ratio 1.1 RATIO (0.9-2.4); AST(SGOT) 30 U/L (<=37); Alanine Aminotransfer ALT/SGPT 17 U/L (<=46); Albumin, Serum 3.9 g/dL (3.4-4.8); Alkaline Phosphatase 75 U/L (40-129); Anion Gap 8 (5-15); BUN 29 mg/dL (4-19); BUN/Creat Ratio 21.2 RATIO (10-20); Calcium,Total 9.7 mg/dL (7.6-11.0); Carbon Dioxide 25.3 mmol/L (21.0-32.0); Chloride 106 mmol/L (98-108); Creatinine, Serum 1.39 mg/dL (0.70-1.20); EST Glomerular Filtration Rate 53 (>60); Globulin 3.5 g/dL (2.2-4.2); Glucose 108 mg/dL (70-99); PSA,Total - Annual Screen 1.34 ng/mL (0.02-4.00); Potassium 4.5 mmol/L (3.3-5.1); Protein, Total 7.5 g/dL (5.9-8.4); Sodium Level 140 mmol/L (133-145); Total Bilirubin 0.35 mg/dL (0.00-1.30); Vitamin B12 527 pg/mL (180-914); Vitamin D,25 Hydroxy 33.9 ng/mL (30-100)
== END | disposition home or self-care (01) ==
PROVIDERS: PCP Internal Medicine; Referring Provider Internal Medicine; Visit Provider Internal Medicine
DX: I10 Essential (primary) hypertension (principal); Z95.1 Presence of aortocoronary bypass graft; I25.10 Atherosclerotic heart disease of native coronary artery without angina pectoris; E78.2 Mixed hyperlipidemia; Z13.220 Encounter for screening for lipoid disorders; E55.9 Vitamin D deficiency, unspecified; E53.8 Deficiency of other specified B group vitamins; Z12.5 Encounter for screening for malignant neoplasm of prostate
CPT/HCPCS: 36415; 80053; 80061; 82306; 82607; 83735; 84153; 84443; 85025; G0103

== ENCOUNTER → 2025-04-03 | Outpatient (CLI) | payer MEDICARE, OTHER, SELFPAY ==
[2025-04-03 11:06] LABS: Cholesterol 185 mg/dL (<=200); Low Density Lipoprotein Calc. 120 mg/dL; Triglycerides 137 mg/dL; Very Low Density Lipoprotein 27 mg/dL (5-40); cholesterol:hdl ratio screen 4.58
[2025-04-03 11:14] LABS: AST(SGOT) 27 U/L (<=37); Alanine Aminotransfer ALT/SGPT 18 U/L (<=46); Albumin, Serum 4.1 g/dL (3.4-4.8); Alkaline Phosphatase 69 U/L (40-129); Anion Gap 8 (5-15); BUN 30 mg/dL (4-19); BUN/Creat Ratio 24.1 RATIO (10-20); Calcium,Total 9.6 mg/dL (7.6-11.0); Carbon Dioxide 25.1 mmol/L (21.0-32.0); Chloride 106 mmol/L (98-108); Globulin 3.6 g/dL (2.2-4.2); Glucose 101 mg/dL (70-99); Potassium 4.5 mmol/L (3.3-5.1)
[2025-04-03 11:42] LABS: Alanine Aminotransfer ALT/SGPT 18 U/L (<=46); Albumin, Serum 4.1 g/dL (3.4-4.8); Alkaline Phosphatase 69 U/L (40-129); Bilirubin, Direct 0.13 mg/dL (0.00-0.30); Globulin 3.6 g/dL (2.2-4.2)
[2025-04-03 11:50] LABS: AST(SGOT) 27 U/L (<=37)
== END | disposition home or self-care (01) ==
PROVIDERS: Nurse Practitioner Family; PCP Internal Medicine; Referring Provider Internal Medicine; Visit Provider Internal Medicine
DX: E78.2 Mixed hyperlipidemia (principal); I10 Essential (primary) hypertension; Z95.1 Presence of aortocoronary bypass graft; Z13.220 Encounter for screening for lipoid disorders
CPT/HCPCS: 36415; 80053; 80061; 80076